=== PATIENT | female | born 1925 | race Caucasian/White ===

== ENCOUNTER 2017-06-12 15:38 | Inpatient (IN) | payer MEDICARE, OTHER ==
[~2017-06-12] VITALS: Ht 154.9 cm; Wt 55.0 kg
[2017-06-12 15:51] VITALS: Ht 154.9 cm; Wt 55.0 kg
--- NOTE | 2017-06-12 18:15 | ERD ---
ER Documentation Chief Complaint Chief Complaint sent by pmd blood in urine since am HPI 89-year-old woman referred here by her PMD for hematuria 1 day. She states she has had bright blood with every bladder movement. She denies history of similar episodes, no back pain, no fevers or chills, no vomiting or diarrhea, no complaints of chest pain or shortness of breath. Patient does use low-dose aspirin daily although denies further anticoagulation, no history of SC or stroke. Patient denies recent antibiotic use, denies dysuria. ROS All systems reviewed and are negative except as per history of present illness. Allergies Allergies: Coded Allergies: No Known Allergy (Unverified , 06/12/17) PMhx/Soc None FmHx Family History: No diabetes Physical Exam Vitals Vital Signs Date Time Temp Pulse Resp B/P Pulse Ox O2 Delivery O2 Flow Rate FiO2 06/12/17 15:51 97.8 78 16 170/78 98 Physical Exam GENERAL: Well-developed, well-nourished, well-hydrated, in no apparent distress , looks nontoxic in appearance HEENT: Moist mucous membranes, pink conjunctiva, no cervical spine tenderness or step-off deformities, no goiter, no jaundice or icterus, extraocular movements intact without pain. No submandibular induration, and no pharyngeal erythema NEURO: Alert and oriented 3, cranial nerves II through XII intact bilaterally, pupils equal round reactive to light, no focal deficits or facial asymmetry, sensation intact distally Strength 5/5 in upper and lower extremities bilaterally CARDIAC: Regular rate and rhythm, no murmurs rubs or gallops LUNGS: Clear bilaterally no wheezing crackles or stridor ABDOMEN: Soft nontender, no guarding, no rigidity, no rebound, no psoas sign no obturator sign. Normoactive bowel sounds SKIN: Warm and dry to touch, no abrasions, contusions, or hematomas, no lacerations, no ecchymosis, no target lesions, and without ulcers EXTREMITIES: No clubbing cyanosis or edema, calves are bilaterally symmetrical, no Homans sign, no popliteal cord sign. Distal pulses equal and bilateral PSYCH: Normal affect without agitation or irritability Result Diagram: 06/12/17182406/12/171824 Results 24 hrs Laboratory Tests Test 06/12/17 18:25 White Blood Count 8.410^3/ul Red Blood Count 4.6710^6/ul Hemoglobin 15.2g/dl Hematocrit 44.2% Mean Corpuscular Volume 94.6fl Mean Corpuscular Hemoglobin 32.5pg Mean Corpuscular Hemoglobin Concent 34.4g/dl Red Cell Distribution Width 13.2% Platelet Count 32502^3/UL Mean Platelet Volume 9.0fl Neutrophils % 63.9% Lymphocytes % 22.4% Monocytes % 11.9% Eosinophils % 0.8% Basophils % 0.6% Nucleated Red Blood Cells % 0.0/100WBC Neutrophils # 5.410^3/ul Lymphocytes # 1.910^3/ul Monocytes # 1.010^3/ul Eosinophils # 0.110^3/ul Basophils # 0.110^3/ul Nucleated Red Blood Cells # 0.010^3/ul Prothrombin Time 12.9Sec Prothrombin Time Ratio 1.0 INR International Normalized Ratio 0.97 Urine Color ARIEL Urine Clarity CLOUDY Urine pH 6.0 Urine Specific [place] 1.013 Urine Ketones NEGATIVEmg/dL Urine Nitrite NEGATIVEmg/dL Urine Bilirubin NEGATIVEmg/dL Urine Urobilinogen NEGATIVEmg/dL Urine Leukocyte Esterase 2+Yeimi/ul Urine Microscopic RBC > 182/HPF Urine Microscopic WBC > 182/HPF Urine Bacteria FEW/HPF Urine Hemoglobin 3+mg/dL Urine Glucose 1+mg/dL Urine Total Protein 2+mg/dl Sodium Level 141mmol/L Potassium Level 3.9mmol/L Chloride Level 102mmol/L Carbon Dioxide Level 29mmol/L Anion Gap 14 Blood Urea Nitrogen 17mg/dl Creatinine 0.82mg/dl Glucose Level 106mg/dl Calcium Level 10.3mg/dl Total Bilirubin 2.0mg/dl Direct Bilirubin 0.00mg/dl Indirect Bilirubin 2.0mg/dl Aspartate Amino Transf (AST/SGOT) 30IU/L Alanine Aminotransferase (ALT/SGPT) 31IU/L Alkaline Phosphatase 88IU/L Troponin I Pending Total Protein 7.5g/dl Albumin 4.4g/dl Globulin 3.10g/dl Albumin/Globulin Ratio 1.41 Lipase 147U/L Current Medications Medications (Trade) Dose Ordered Sig/Naldo Route PRN Reason Start Time Stop Time Status Last Admin Dose Admin Ceftriaxone Sodium 50 ml @ 100 mls/hr ONCE ONCE IVPB 06/12/17 18:30 06/12/17 18:59 DC 06/12/17 18:41 Sodium Chloride (NS) 1,000 ml @ 1,000 mls/hr Q1H ONCE IV 06/12/17 18:30 06/12/17 19:29 DC 06/12/17 18:42 Procedures/MDM IV line was established patient was placed on filterer rhythm strip revealed a sinus rhythm at about 60 bpm with upright P and T waves. Patient was afebrile Urine analysis was positive for RBCs and infection, CBC and electrolytes were unremarkable, liver function tests normal, coagulation profile normal. Troponin was negative. EKG performed, read by me: 62 bpm, normal sinus rhythm, normal axis, no acute ST segment changes, narrow QRS complex, with good R-wave progression in precordial leads. I administered 1 L normal saline intravenously and ceftriaxone 1 g IV for hemorrhagic cystitis. CT scan of the abdomen and pelvis has been ordered results are pending I will follow-up. Patient will be admitted to [facility] [place] under Dr. Glass who I spoke to. Patient will be admitted for further imaging and consultation. Departure Diagnosis: Primary Impression: Hematuria Hematuria type: unspecified type Qualified Code: R31.9 - Hematuria, unspecified type Additional Impression: Acute cystitis Hematuria presence: with hematuria Qualified Code: N30.01 - Acute cystitis with hematuria Condition: GEMA Roth MD Jun 12, 2017 18:15
[2017-06-12] MEDS ORDERED: SOD CHLORIDE 0.9% 1,000 ML IV ONE (18:30)
[2017-06-12] MEDS ORDERED: CEFTRIAXONE 1 GM/50 ML (PMX) 50 ML IVPB ONE (18:30)
[2017-06-12 18:49] LABS: BASOPHIL # 0.1 10^3/ul (0.0-0.1); BASOPHILS % 0.6 % (0.0-2.0); EOSINOPHILS # 0.1 10^3/ul (0.0-0.5); EOSINOPHILS % 0.8 % (0.0-7.0); HEMATOCRIT 44.2 % (37.0-47.0); HEMOGLOBIN 15.2 g/dl (12.0-16.0); LYMPHOCYTES # 1.9 10^3/ul (0.8-2.9); LYMPHOCYTES % 22.4 % (15.0-51.0); MEAN CORPUSCULAR HEMOGLOBIN 32.5 pg (29.0-33.0); MEAN CORPUSCULAR HGB CONC 34.4 g/dl (32.0-37.0); MEAN CORPUSCULAR VOLUME 94.6 fl (82.0-101.0); MONOCYTES % 11.9 % (0.0-11.0); NEUTROPHIL # 5.4 10^3/ul (1.6-7.5); NEUTROPHILS % 63.9 % (39.0-77.0); PLATELET COUNT 325 10^3/UL (140-415); RED BLOOD COUNT 4.67 10^6/ul (4.20-5.40); RED CELL DISTRIBUTION WIDTH 13.2 % (11.5-14.5); WHITE BLOOD COUNT 8.4 10^3/ul (4.8-10.8)
[2017-06-12 18:58] LABS: ADD UMIC YES; UR ASCORBIC ACID NEGATIVE (NEGATIVE); UR BACTERIA FEW /HPF (NONE SEEN); UR BILIRUBIN (Dip) NEGATIVE (NEGATIVE); UR BLOOD (Dip) 3+ mg/dL (NEGATIVE); UR CLARITY CLOUDY (CLEAR); UR COLOR AMBER (YELLOW); UR GLUCOSE (Dip) 1+ mg/dL (NEGATIVE); UR KETONES (Dip) NEGATIVE (NEGATIVE); UR LEUKOCYTE ESTERASE (Dip) 2+ Leu/ul (NEGATIVE); UR NITRITE (Dip) NEGATIVE (NEGATIVE); UR RBC > 182 /HPF (0-5); UR SPECIFIC GRAVITY (Dip) 1.013 (1.003-1.030); UR TOTAL PROTEIN (Dip) 2+ mg/dl (NEGATIVE); UR UROBILINOGEN (Dip) NEGATIVE (NEGATIVE)
[2017-06-12 19:09] LABS: INR 0.97; PROTIME 12.9 Sec (12.2-14.2)
[2017-06-12 19:15] LABS: ALBUMIN 4.4 g/dl (3.3-4.9); ALBUMIN/GLOBULIN RATIO 1.41; CALCIUM 10.3 mg/dl (8.4-10.2); CREATININE 0.82 mg/dl (0.44-1.00); POTASSIUM 3.9 mmol/L (3.5-5.1); TOTAL PROTEIN 7.5 g/dl (6.1-8.1)
[2017-06-12 19:25] LABS: TROPONIN-I 0.013 ng/ml (0.00-0.12)
--- NOTE | 2017-06-12 20:57 | RADRPT ---
PROCEDURE: CT Abdomen and Pelvis without contrast. CLINICAL INDICATION: Abdominal pain TECHNIQUE: CT scan of the abdomen and pelvis without contrast was performed on a multidetector hig h-resolution CT scanner. The patient was scanned without intravenous contrast. Coronal and sagittal reformatted images were obtained from the axial source images. Images were reviewed on a high-resol PR Slides PACS workstation. The total exam CTDI equals 5.87 mGy and the total exam DLP equals 319.34 mGy -cm. One or more the following dose reduction techniques were utilized: Automated exposure control, adjus tment of the mA and / or kV according to patient's size, or use of iterative reconstruction techniqu e. DICOM images are available. COMPARISON: None. FINDINGS: Mild dependent atelectasis in posterior lungs. Linear atelectasis/fibrosis at lung bases. No pneumop eritoneum is seen. There is mild left hydronephrosis and mild to moderate right hydronephrosis. Ther e is an approximate 3 mm nonobstructing calcification in the mid right kidney. No ureteral stone is seen. No abnormality of the bladder is seen. The patient appears to be status post hysterectomy. Ceballos rgical clips in bilateral inguinal regions. No abnormality is seen in the gallbladder. There is an a pproximate 8 mm rounded fluid density structure in right lobe of the liver likely a cyst. No imaging follow-up of this is recommended. No abnormality seen in the spleen, pancreas, adrenals. The stomac h is not distended. There is a small hiatal hernia. Calcification in thoracoabdominal aorta, splenic and bilateral iliac arteries. No abdominal aortic aneurysm is seen. No ascites is seen. Diverticula in sigmoid, descending and ascending colon. There is no specific evidence of acute diverticulitis is seen. There is no evidence of acute appendicitis. No dilated small bowel loops are seen. No enlar ged lymph nodes are seen in the abdomen or pelvis. Diffuse osteopenia. Mild osteitis pubis. Moderate osteoarthrosis at hips. Degenerative changes at sacroiliac joints. Degenerative changes in thoracol umbar spine. Mild dextroscoliosis of lumbar spine. IMPRESSION: Nonspecific mild left hydronephrosis and mild to moderate right hydronephrosis. 3 mm nonobstructing calcification in mid right kidney. Small hiatal hernia. Atherosclerosis. Colonic diverticulosis. No specific evidence of acute diverticulitis seen. Please see above. RPTAT: HJES .Zay Mendoza MD, Date Time Electronically viewed and signed by .Zay Mendoza MD, on 06/12/2017 20:57 .S/
[2017-06-12 22:00] VITALS: BP 153/71; RESP 19
[2017-06-12] MEDS ORDERED: ACETAMINOPHEN 500 MG TAB PO PRN (22:00)
[2017-06-12] MEDS: CEFTRIAXONE 1 GM/50 ML (PMX) 50 ML IVPB SCH (22:00)
[2017-06-12] MEDS: DEXTROSE 5%-0.45% NACL 1,000 ML IV SCH (22:58)
[2017-06-12] MEDS: LORAZEPAM 0.5 MG TAB PO PRN (23:07)
[2017-06-13 02:00] VITALS: BP 126/58; RESP 18
[2017-06-13] MEDS: LEVOTHYROXINE 100 MCG TAB PO SCH (05:44)
[2017-06-13 06:47] LABS: BASOPHILS % 0.6 % (0.0-2.0); EOSINOPHILS # 0.1 10^3/ul (0.0-0.5); HEMATOCRIT 36.8 % (37.0-47.0); HEMOGLOBIN 12.7 g/dl (12.0-16.0); LYMPHOCYTES # 1.9 10^3/ul (0.8-2.9); LYMPHOCYTES % 28.6 % (15.0-51.0); MEAN CORPUSCULAR HEMOGLOBIN 32.4 pg (29.0-33.0); MEAN CORPUSCULAR HGB CONC 34.5 g/dl (32.0-37.0); MEAN CORPUSCULAR VOLUME 93.9 fl (82.0-101.0); MEAN PLATELET VOLUME 9.3 fl (7.4-10.4); MONOCYTE # 0.8 10^3/ul (0.3-0.9); MONOCYTES % 12.8 % (0.0-11.0); NEUTROPHIL # 3.7 10^3/ul (1.6-7.5); NEUTROPHILS % 55.8 % (39.0-77.0); PLATELET COUNT 265 10^3/UL (140-415); RED BLOOD COUNT 3.92 10^6/ul (4.20-5.40); RED CELL DISTRIBUTION WIDTH 13.3 % (11.5-14.5); WHITE BLOOD COUNT 6.6 10^3/ul (4.8-10.8)
[2017-06-13 07:25] LABS: ALBUMIN 3.2 g/dl (3.3-4.9); ALBUMIN/GLOBULIN RATIO 1.23; BILIRUBIN,INDIRECT 2.3 mg/dl (0-1.1); BILIRUBIN,TOTAL 2.3 mg/dl (0.2-1.3); CALCIUM 9.2 mg/dl (8.4-10.2); CREATININE 0.75 mg/dl (0.44-1.00); POTASSIUM 3.9 mmol/L (3.5-5.1); TOTAL PROTEIN 5.8 g/dl (6.1-8.1)
[2017-06-13] MEDS: BENAZEPRIL 20 MG TAB PO SCH (08:25)
[2017-06-13] MEDS: AMLODIPINE 5 MG TAB PO SCH (08:27)
[2017-06-13] MEDS: BISOPROLOL 5 MG TAB PO SCH (08:27)
--- NOTE | 2017-06-13 10:44 | HP ---
DATE OF ADMISSION: 06/12/2017 CHIEF COMPLAINT AND HISTORY OF PRESENT ILLNESS: The patient is an 89-year-old lady who presented wi th severe hematuria since morning of 06/12, which was painless with no fever or chills. No prior hi story of nephrolithiasis. The patient is on low dose aspirin 81 mg every day. No history of trauma to the flanks. She did have a fall about 10 days ago when she was taking the trash out, hit her ri ght side of the face and the right knee, but no definite abdominal trauma. Patient did have surgery for bladder prolapse about 20+ years ago. REVIEW OF SYSTEMS: HEAD: No history of headaches, focal weakness, or numbness. No history of strokes. EYES: No blurry vision or glaucoma. ENT: No sinusitis, tonsillitis, or hearing loss. NECK: History of hypothyroidism. CHEST: No bronchitis, hay fever, or asthma. The patient does not smoke. HEART: No PND, orthopnea, palpitations. No prior history of [place] or angina. GASTROINTESTINAL: No constipation, diarrhea, change in bowel habits. No history of hematemesis or melena. GENITOURINARY: History of bladder prolapse as above, status post hysterectomy in 2005. No history of cancer. FAMILY HISTORY: Mother of cancer. Exact details not clear. One sister had bile duct [place]. Fat her of [place] at 75. SOCIAL HISTORY: The patient is . He has got 4 children. PAST SURGICAL HISTORY: Other surgeries also include tonsillectomy and appendectomy. CURRENT MEDICATIONS: Include: 1. Bisoprolol 5 mg every day. 2. Levothyroxine 100 mcg p.o. every day. 3. Lorazepam 0.5 mg q.6h. p.r.n. 4. Amlodipine 5 mg p.o. every day. 5. Benazepril 12.5 mg p.o. every day. PHYSICAL EXAMINATION: GENERAL: No history of weight loss or weight gain. On physical examination, the patient is an aver age-built female who is awake, alert, presently in no acute distress. VITAL SIGNS: Temperature 97.5, blood pressure 126/58, O2 saturation 96%. HEENT: Head normocephalic. Mild pallor without cyanosis. Tongue is coated, dry. NECK: Supple. No thyromegaly, bruits or lymphadenopathy. LUNGS: Clinically clear. HEART: S1, S2, no definite gallops or murmurs. ABDOMEN: Soft, nontender, no hepatosplenomegaly. EXTREMITIES: No edema. Pedal pulsations 2+ bilaterally. Elena's sign is negative. NEUROLOGIC: No localizing or lateralizing signs. LABORATORY DATA: Initial WBC count 8.4, hematocrit 44.2, platelet count 325,000. Sodium 141, potas sium 3.9, BUN 17, creatinine 0.82, indirect bilirubin 2.0, direct is 0, total is 2, AST 30, ALT 31, alkaline phosphatase 88. Urinalysis shows more than 192 RBCs and WBCs, positive bacteria. CT of th e abdomen and pelvis shows nonspecific mild left hydronephrosis, mild to moderate right hydronephros is, 3 mm nonobstructing calcification in the mid right kidney. CT was done without IV contrast. IMPRESSION: 1. Hematuria of uncertain origin, query hemorrhagic cystitis, query secondary to nephrolithiasis. 2. Bilateral hydronephrosis, etiology unclear. 3. Hypertension, well compensated. 4. 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 We will obtain urine cytology, request genitourinary consultation with Dr. Bruce. Observe for mar. Empiric antibiotic therapy with Rocephin. Hold aspirin for now. Dictated By: NOVA BOBBY MD, SR/NTS Conf#: [id number] DID#: [id number]
[2017-06-13] MEDS: DEXTROSE 5%-0.45% NACL 1,000 ML IV SCH ×2 (11:20→17:52)
[2017-06-13 20:23] VITALS: BP 144/74; RESP 18
--- NOTE | 2017-06-13 21:33 | CONS ---
Date/Time of Note Date/Time of Note DATE: 06/13/17 TIME: 21:20 Assessment/Plan Assessment/Plan Chief Complaint/Hosp Course 89-year-old female had gross hematuria, painless, urine cultures showing more than 100,000 gram-negative rods. CT scan of the abdomen and pelvis without IV contrast did not show any parenchymal tumor. For now we will continue her antibiotic pending the result of the sensitivity of the urine culture. Then we could decide whether to put her on oral antibiotic or intravenous antibiotic. She will need to undergo a cystoscopy and I did discuss that with her and can do it in the office later on. Problems: Consultation Date/Type/Reason Admit Date/Time Jun 12, 2017 at 19:41 Date of Consultation: Jun 13, 2017 Type of Consultation: Urology Reason for Consultation Gross hematuria Referring Provider: NOVA BOBBY MD Hx of Present Illness The patient is an 89-year-old lady who presented with severe hematuria since which was painless with no fever or chills. No prior history of nephrolithiasis. The patient is on low dose aspirin 81 mg every day. No history of trauma to the flanks. She did have a fall about 10 days ago when she was taking the trash out, hit her right side of the face and the right knee , but no definite abdominal trauma. Patient did have abdominal hysterectomy and surgery for bladder prolapse about 20+ years ago. 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 Exact details not clear. One sister had bile duct [place]. Father of [place] at 75.) Social History Alcohol Use: occasionally Smoking Status: Never smoker Other Social History 4 para 4 Exam/Review of Systems Vital Signs Vitals Vital Signs Date Time Temp Pulse Resp B/P Pulse Ox O2 Delivery O2 Flow Rate FiO2 06/13/17 20:23 98.4 58 18 144/74 98 06/12/17 20:19 Room Air Intake and Output 06/12/17 06/12/17 06/13/17 14:59 22:59 06:59 Intake Total 595 ml Output Total 600 ml Balance -5 ml Exam Constitutional: alert, oriented Psych: no complaints Head: normocephalic Eyes: nl conjunctiva ENMT: nl external ears & nose Neck: non-tender Respiratory: normal air movement Cardiovascular: No edema, No jugular venous distention (JVD) Gastrointestinal: soft, surgical scars (Midline ) Genitourinary - Female: other (Pelvic exam: No mass, no discharge and no bleeding) Extremities: No calf tenderness, No edema Neurological: nl mental status Skin: nl turgor Results Result Diagram: 06/13/1710 06/13/1710 Results 24 hrs Laboratory Tests Test 06/13/17 06:10 White Blood Count 6.6 # Red Blood Count 3.92 L Hemoglobin 12.7 Hematocrit 36.8 L Mean Corpuscular Volume 93.9 Mean Corpuscular Hemoglobin 32.4 Mean Corpuscular Hemoglobin Concent 34.5 Red Cell Distribution Width 13.3 Platelet Count 265 Mean Platelet Volume 9.3 Neutrophils % 55.8 Lymphocytes % 28.6 Monocytes % 12.8 H Eosinophils % 2.0 Basophils % 0.6 Nucleated Red Blood Cells % 0.0 Neutrophils # 3.7 Lymphocytes # 1.9 Monocytes # 0.8 Eosinophils # 0.1 Basophils # 0.0 Nucleated Red Blood Cells # 0.0 Sodium Level 143 Potassium Level 3.9 Chloride Level 106 Carbon Dioxide Level 29 Anion Gap 12 Blood Urea Nitrogen 12 Creatinine 0.75 Glucose Level 109 Calcium Level 9.2 Total Bilirubin 2.3 H Direct Bilirubin 0.00 Indirect Bilirubin 2.3 H Aspartate Amino Transf (AST/SGOT) 25 Alanine Aminotransferase (ALT/SGPT) 29 Alkaline Phosphatase 60 Total Protein 5.8 #L Albumin 3.2 #L Globulin 2.60 Albumin/Globulin Ratio 1.23 Thyroxine (T4) 9.4 Imaging Free Text/Dictation CT scan of the abdomen and pelvis without contrast:Nonspecific mild left hydronephrosis and mild to moderate right hydronephrosis. 3 mm nonobstructing calcification in mid right kidney. Small hiatal hernia. Atherosclerosis. Colonic diverticulosis. No specific evidence of acute diverticulitis seen. Medications Medications Current Medications Dextrose/Sodium Chloride 1,000 ml @ 75 mls/hr [id number] IV Last administered on 06/13/17 17:52; Admin Dose 75 MLS/HR; Start 06/12/17 at 22:00 Ceftriaxone Sodium (Rocephin) 50 ml @ 100 mls/hr Q24H IVPB ; Start 06/12/17 at 22:00 Acetaminophen (Tylenol Tab) 500 mg Q6H PRN PO PAIN AND OR ELEVATED TEMP; Start 06/12/17 at 22:00 Amlodipine Besylate (Norvasc) 5 mg DAILY PO Last administered on 06/13/17 08: 27; Admin Dose 5 MG; Start 06/13/17 at 09:00 Bisoprolol Fumarate (Zebeta) 5 mg DAILY PO Last administered on 06/13/17 08: 27; Admin Dose 5 MG; Start 06/13/17 at 09:00 Levothyroxine Sodium (Synthroid) 100 mcg DAILY@06 PO Last administered on 06/13 05:44; Admin Dose 100 MCG; Start 06/13/17 at 06:00 Lorazepam (Ativan) 0.5 mg Q6H PRN PO ANXIETY Last administered on 06/12/17 23 :07; Admin Dose 0.5 MG; Start 06/12/17 at 22:00 Benazepril HCl (Lotensin) 12.5 mg DAILY PO Last administered on 06/13/17 08: 25; Admin Dose 12.5 MG; Start 06/13/17 at 09:00 GABBY ARMSTRONG MD Jun 13, 2017 21:31
[2017-06-13] MEDS: CEFTRIAXONE 1 GM/50 ML (PMX) 50 ML IVPB SCH (22:34)
[2017-06-13] MEDS: LORAZEPAM 0.5 MG TAB PO PRN (22:40)
[2017-06-14 02:14] VITALS: BP 107/60; RESP 17
[2017-06-14] MEDS: LEVOTHYROXINE 100 MCG TAB PO SCH (06:03)
[2017-06-14 08:24] VITALS: BP 129/58; RESP 18
[2017-06-14] MEDS: BENAZEPRIL 20 MG TAB PO SCH (09:00)
[2017-06-14] MEDS: AMLODIPINE 5 MG TAB PO SCH (09:01)
[2017-06-14] MEDS: BISOPROLOL 5 MG TAB PO SCH (09:02)
[2017-06-14] MEDS: DEXTROSE 5%-0.45% NACL 1,000 ML IV SCH ×3 (09:57→22:20)
[2017-06-14 15:28] VITALS: BP 145/65; RESP 20
--- NOTE | 2017-06-14 19:51 | PN ---
Date/Time of Note Date/Time of Note DATE: 06/14/17 TIME: 19:44 Assessment/Plan VTE Prophylaxis VTE Prophylaxis Intervention: ambulation Lines/Catheters IV Catheter Type (from Nrs): Peripheral IV Urinary Cath still in place: No Assessment/Plan Assessment/Plan A: hematuria hydronephrosis UTI HTN P: discussed with Dr. Bruce cont inpt care cont abx may need cystoscopy during hospitalization, needs few more days abx first cont current rx monitor labs Subjective 24 Hr Interval Summary Free Text/Dictation Covering for Dr. Glass. Pt with persistent hematuria, still significant amount despite abx. No pain, cp, sob, abd pain, dizziness. Exam/Review of Systems Vital Signs Vitals Vital Signs Date Time Temp Pulse Resp B/P Pulse Ox O2 Delivery O2 Flow Rate FiO2 06/14/17 15:28 98.0 64 20 145/65 98 06/12/17 20:19 Room Air Intake and Output 06/13/17 06/13/17 06/14/17 15:00 23:00 07:00 Intake Total 0 ml 1405 ml 1225 ml Output Total 700 ml 1000 ml Balance 0 ml 705 ml 225 ml Exam gen- nad, nontoxic lungs- cta heart- RRR abd- +BS, soft, nontender ext- no cce. Results Result Diagram: 06/13/17 0610 06/13/17 0610 Medications Medications Current Medications Dextrose/Sodium Chloride 1,000 ml @ 75 mls/hr [id number] IV Last administered on 06/14/17 09:57; Admin Dose 75 MLS/HR; Start 06/12/17 at 22:00 Ceftriaxone Sodium (Rocephin) 50 ml @ 100 mls/hr Q24H IVPB Last administered on 06/13/17 22:34; Admin Dose 100 MLS/HR; Start 06/12/17 at 22:00 Acetaminophen (Tylenol Tab) 500 mg Q6H PRN PO PAIN AND OR ELEVATED TEMP; Start 06/12/17 at 22:00 Amlodipine Besylate (Norvasc) 5 mg DAILY PO Last administered on 06/14/17 09: 01; Admin Dose 5 MG; Start 06/13/17 at 09:00 Bisoprolol Fumarate (Zebeta) 5 mg DAILY PO Last administered on 11/22/17at 09: 02; Admin Dose 5 MG; Start 06/13/17 at 09:00 Levothyroxine Sodium (Synthroid) 100 mcg DAILY@06 PO Last administered on 06/14 06:03; Admin Dose 100 MCG; Start 06/13/17 at 06:00 Lorazepam (Ativan) 0.5 mg Q6H PRN PO ANXIETY Last administered on 06/13/17 22 :40; Admin Dose 0.5 MG; Start 06/12/17 at 22:00 Benazepril HCl (Lotensin) 12.5 mg DAILY PO Last administered on 06/14/17 09: 00; Admin Dose 12.5 MG; Start 06/13/17 at 09:00 RESHMA JONES MD Jun 14, 2017 19:51
--- NOTE | 2017-06-14 20:27 | CONS ---
Date/Time of Note Date/Time of Note DATE: 06/14/17 TIME: 20:24 Consult Date/Type/Reason Admit Date/Time Jun 12, 2017 at 19:41 Initial Consult Date 06/13/17 Type of Consultation: Urology Reason for Consultation Gross hematuria and urinary tract infection Ordering Provider: NOVA BOBBY MD Subjective The patient is feeling well however she still urinating blood Objective Vital Signs Date Time Temp Pulse Resp B/P Pulse Ox O2 Delivery O2 Flow Rate FiO2 06/14/17 15:28 98.0 64 20 145/65 98 06/12/17 20:19 Room Air Intake and Output 06/13/17 06/13/17 06/14/17 15:00 23:00 07:00 Intake Total 0 ml 1405 ml 1225 ml Output Total 700 ml 1000 ml Balance 0 ml 705 ml 225 ml Exam Abdomen is soft there is no abdominal mass palpable the urine that she is voiding in the bathroom still red blood Results/Medications Result Diagram: 06/13/17 0610 06/13/17 0610 Medications Current Medications Dextrose/Sodium Chloride 1,000 ml @ 75 mls/hr [id number] IV Last administered on 06/14/17 09:57; Admin Dose 75 MLS/HR; Start 06/12/17 at 22:00 Ceftriaxone Sodium (Rocephin) 50 ml @ 100 mls/hr Q24H IVPB Last administered on 06/13/17 22:34; Admin Dose 100 MLS/HR; Start 06/12/17 at 22:00 Acetaminophen (Tylenol Tab) 500 mg Q6H PRN PO PAIN AND OR ELEVATED TEMP; Start 06/12/17 at 22:00 Amlodipine Besylate (Norvasc) 5 mg DAILY PO Last administered on 06/14/17 09: 01; Admin Dose 5 MG; Start 06/13/17 at 09:00 Bisoprolol Fumarate (Zebeta) 5 mg DAILY PO Last administered on 06/14/17 09: 02; Admin Dose 5 MG; Start 06/13/17 at 09:00 Levothyroxine Sodium (Synthroid) 100 mcg DAILY@06 PO Last administered on 06/14 06:03; Admin Dose 100 MCG; Start 06/13/17 at 06:00 Lorazepam (Ativan) 0.5 mg Q6H PRN PO ANXIETY Last administered on 06/13/17 22 :40; Admin Dose 0.5 MG; Start 06/12/17 at 22:00 Benazepril HCl (Lotensin) 12.5 mg DAILY PO Last administered on 06/14/17 09: 00; Admin Dose 12.5 MG; Start 06/13/17 at 09:00 Assessment/Plan Chief Complaint/Hosp Course 89-year-old female had gross hematuria, painless, urine cultures showing more than 100,000 gram-negative rods sensitive to all antibiotics tested. CT scan of the abdomen and pelvis without IV contrast did not show any parenchymal tumor. For now we will continue her antibiotic. She will need to undergo a cystoscopy since he still has gross hematuria even though the infection is being treated Problems: GABBY ARMSTRONG MD Jun 14, 2017 20:27
[2017-06-14 20:49] VITALS: BP 140/64; RESP 19
[2017-06-14] MEDS: LORAZEPAM 0.5 MG TAB PO PRN (22:10)
[2017-06-14] MEDS: CEFTRIAXONE 1 GM/50 ML (PMX) 50 ML IVPB SCH (22:10)
[2017-06-15 02:14] VITALS: BP 133/62; RESP 18
[2017-06-15] MEDS: DEXTROSE 5%-0.45% NACL 1,000 ML IV SCH ×3 (03:17→21:11)
[2017-06-15 05:46] LABS: BASOPHILS % 0.4 % (0.0-2.0); EOSINOPHILS # 0.1 10^3/ul (0.0-0.5); EOSINOPHILS % 0.9 % (0.0-7.0); HEMATOCRIT 36.2 % (37.0-47.0); HEMOGLOBIN 12.6 g/dl (12.0-16.0); LYMPHOCYTES # 2.2 10^3/ul (0.8-2.9); LYMPHOCYTES % 27.8 % (15.0-51.0); MEAN CORPUSCULAR HEMOGLOBIN 32.5 pg (29.0-33.0); MEAN CORPUSCULAR HGB CONC 34.8 g/dl (32.0-37.0); MEAN CORPUSCULAR VOLUME 93.3 fl (82.0-101.0); MEAN PLATELET VOLUME 9.1 fl (7.4-10.4); MONOCYTE # 1.3 10^3/ul (0.3-0.9); MONOCYTES % 16.1 % (0.0-11.0); NEUTROPHIL # 4.4 10^3/ul (1.6-7.5); NEUTROPHILS % 54.5 % (39.0-77.0); PLATELET COUNT 239 10^3/UL (140-415); RED BLOOD COUNT 3.88 10^6/ul (4.20-5.40); RED CELL DISTRIBUTION WIDTH 13.5 % (11.5-14.5)
[2017-06-15 06:08] LABS: CALCIUM 8.5 mg/dl (8.4-10.2); CREATININE 0.66 mg/dl (0.44-1.00)
[2017-06-15 07:57] VITALS: BP 141/92; RESP 20
[2017-06-15] MEDS: BENAZEPRIL 20 MG TAB PO SCH (08:10)
[2017-06-15] MEDS: BISOPROLOL 5 MG TAB PO SCH (08:11)
[2017-06-15] MEDS: AMLODIPINE 5 MG TAB PO SCH (08:11)
[2017-06-15] MEDS ORDERED: POTASSIUM CHLORIDE (SR) 20 MEQ TAB PO STA (09:39)
[2017-06-15] MEDS: LEVOTHYROXINE 100 MCG TAB PO SCH (09:49)
[2017-06-15 14:29] VITALS: BP 132/60; RESP 20
--- NOTE | 2017-06-15 14:31 | PN ---
Date/Time of Note Date/Time of Note DATE: 06/15/17 TIME: 14:27 Assessment/Plan VTE Prophylaxis VTE Prophylaxis Intervention: ambulation Lines/Catheters IV Catheter Type (from [facility]): Peripheral IV Urinary Cath still in place: No Assessment/Plan Assessment/Plan A: hematuria hypokalemia UTI hydronephrosis P: k replaced monitor labs cont abx cystoscopy soon per Dr. Bruce Subjective 24 Hr Interval Summary Free Text/Dictation Pt with persistent hematuria, though sl better. No dysuria, back pain, abd pain , cp, sob, dizziness. Hypokalemia this am, given oral replacement. Exam/Review of Systems Vital Signs Vitals Vital Signs Date Time Temp Pulse Resp B/P Pulse Ox O2 Delivery O2 Flow Rate FiO2 06/15/17 07:57 98.0 72 20 141/92 97 06/12/17 20:19 Room Air Intake and Output 06/14/17 06/14/17 06/15/17 15:00 23:00 07:00 Intake Total 175 ml 1550 ml 765 ml Output Total 1050 ml 400 ml Balance 175 ml 500 ml 365 ml Exam gen- nad, nontoxic lungs- CTA heart- RRR abd- +BS. soft, nontender, no cvat ext- no cce. Results Result Diagram: 06/15/17 0532 06/15/17 0532 Results 24 hrs Laboratory Tests Test 06/15/17 05:32 White Blood Count 8.0 # Red Blood Count 3.88 L Hemoglobin 12.6 Hematocrit 36.2 L Mean Corpuscular Volume 93.3 Mean Corpuscular Hemoglobin 32.5 Mean Corpuscular Hemoglobin Concent 34.8 Red Cell Distribution Width 13.5 Platelet Count 239 Mean Platelet Volume 9.1 Neutrophils % 54.5 Lymphocytes % 27.8 Monocytes % 16.1 H Eosinophils % 0.9 Basophils % 0.4 Nucleated Red Blood Cells % 0.0 Neutrophils # 4.4 Lymphocytes # 2.2 Monocytes # 1.3 H Eosinophils # 0.1 Basophils # 0.0 Nucleated Red Blood Cells # 0.0 Sodium Level 140 Potassium Level 3.0 L Chloride Level 104 Carbon Dioxide Level 27 Anion Gap 12 Blood Urea Nitrogen 9 Creatinine 0.66 Glucose Level 102 Calcium Level 8.5 Medications Medications Current Medications Dextrose/Sodium Chloride 1,000 ml @ 75 mls/hr [id number] IV Last administered on 06/14/17 22:20; Admin Dose 75 MLS/HR; Start 06/12/17 at 22:00 Ceftriaxone Sodium (Rocephin) 50 ml @ 100 mls/hr Q24H IVPB Last administered on 06/14/17 22:10; Admin Dose 100 MLS/HR; Start 06/12/17 at 22:00 Acetaminophen (Tylenol Tab) 500 mg Q6H PRN PO PAIN AND OR ELEVATED TEMP; Start 06/12/17 at 22:00 Amlodipine Besylate (Norvasc) 5 mg DAILY PO Last administered on 06/15/17 08: 11; Admin Dose 5 MG; Start 06/13/17 at 09:00 Bisoprolol Fumarate (Zebeta) 5 mg DAILY PO Last administered on 06/15/17 08: 11; Admin Dose 5 MG; Start 06/13/17 at 09:00 Levothyroxine Sodium (Synthroid) 100 mcg DAILY@06 PO Last administered on 06/15 09:49; Admin Dose 100 MCG; Start 06/13/17 at 06:00 Lorazepam (Ativan) 0.5 mg Q6H PRN PO ANXIETY Last administered on 06/14/17 22 :10; Admin Dose 0.5 MG; Start 06/12/17 at 22:00 Benazepril HCl (Lotensin) 12.5 mg DAILY PO Last administered on 06/15/17 08: 10; Admin Dose 12.5 MG; Start 06/13/17 at 09:00 RESHMA JONES MD Jun 15, 2017 14:31
[2017-06-15 20:00] VITALS: BP 145/68; RESP 20
[2017-06-15] MEDS: CEFTRIAXONE 1 GM/50 ML (PMX) 50 ML IVPB SCH (21:11)
[2017-06-15] MEDS: LORAZEPAM 0.5 MG TAB PO PRN (21:11)
[2017-06-16 02:00] VITALS: BP 140/64; RESP 18
[2017-06-16] MEDS: LEVOTHYROXINE 100 MCG TAB PO SCH (05:28)
[2017-06-16 05:52] LABS: BASOPHILS % 0.4 % (0.0-2.0); EOSINOPHILS # 0.2 10^3/ul (0.0-0.5); EOSINOPHILS % 2.9 % (0.0-7.0); HEMATOCRIT 37.1 % (37.0-47.0); HEMOGLOBIN 12.7 g/dl (12.0-16.0); LYMPHOCYTES # 1.8 10^3/ul (0.8-2.9); LYMPHOCYTES % 26.2 % (15.0-51.0); MEAN CORPUSCULAR HEMOGLOBIN 32.2 pg (29.0-33.0); MEAN CORPUSCULAR HGB CONC 34.2 g/dl (32.0-37.0); MEAN CORPUSCULAR VOLUME 94.2 fl (82.0-101.0); MONOCYTES % 13.9 % (0.0-11.0); NEUTROPHIL # 3.9 10^3/ul (1.6-7.5); NEUTROPHILS % 56.2 % (39.0-77.0); PLATELET COUNT 242 10^3/UL (140-415); RED BLOOD COUNT 3.94 10^6/ul (4.20-5.40); RED CELL DISTRIBUTION WIDTH 13.2 % (11.5-14.5); WHITE BLOOD COUNT 6.9 10^3/ul (4.8-10.8)
[2017-06-16 06:12] LABS: CALCIUM 8.9 mg/dl (8.4-10.2); CREATININE 0.7 mg/dl (0.44-1.00); MAGNESIUM 1.8 mg/dl (1.7-2.5); POTASSIUM 3.6 mmol/L (3.5-5.1)
[2017-06-16 08:20] VITALS: BP 146/65; RESP 17
[2017-06-16] MEDS: BISOPROLOL 5 MG TAB PO SCH (08:28)
[2017-06-16] MEDS: BENAZEPRIL 20 MG TAB PO SCH (08:31)
[2017-06-16] MEDS: AMLODIPINE 5 MG TAB PO SCH (08:32)
[2017-06-16] MEDS: DEXTROSE 5%-0.45% NACL 1,000 ML IV SCH ×2 (10:39→23:45)
--- NOTE | 2017-06-16 11:53 | CONS ---
Date/Time of Note Date/Time of Note DATE: 06/16/17 TIME: 11:51 Consult Date/Type/Reason Admit Date/Time Jun 15, 2017 at 09:41 Initial Consult Date 06/13/17 Type of Consultation: Urology Reason for Consultation Gross hematuria and urinary tract infection Ordering Provider: NOVA BOBBY MD Subjective Patient states that she still have hematuria even though it is less than before but the urine remains blood-tinged even though she has been on antibiotic since her admission. Objective Vital Signs Date Time Temp Pulse Resp B/P Pulse Ox O2 Delivery O2 Flow Rate FiO2 06/16/17 08:20 98.2 69 17 146/65 98 06/12/17 20:19 Room Air Intake and Output 06/15/17 06/15/17 06/16/17 14:59 22:59 06:59 Intake Total 1485 ml 1100 ml Output Total 800 ml 800 ml Balance 685 ml 300 ml Exam The abdomen is soft, there is no abdominal mass palpable and there is no flank tenderness. Results/Medications Result Diagram: 06/16/17 0453 06/16/17 0453 Results 24 hrs Laboratory Tests Test 06/16/17 04:53 White Blood Count 6.9 Red Blood Count 3.94 L Hemoglobin 12.7 Hematocrit 37.1 Mean Corpuscular Volume 94.2 Mean Corpuscular Hemoglobin 32.2 Mean Corpuscular Hemoglobin Concent 34.2 Red Cell Distribution Width 13.2 Platelet Count 242 Mean Platelet Volume 9.0 Neutrophils % 56.2 Lymphocytes % 26.2 Monocytes % 13.9 H Eosinophils % 2.9 Basophils % 0.4 Nucleated Red Blood Cells % 0.0 Neutrophils # 3.9 Lymphocytes # 1.8 Monocytes # 1.0 H Eosinophils # 0.2 Basophils # 0.0 Nucleated Red Blood Cells # 0.0 Sodium Level 140 Potassium Level 3.6 Chloride Level 107 Carbon Dioxide Level 26 Anion Gap 11 Blood Urea Nitrogen 13 Creatinine 0.70 Glucose Level 99 Calcium Level 8.9 Magnesium Level 1.8 Medications Current Medications Dextrose/Sodium Chloride 1,000 ml @ 75 mls/hr [id number] IV Last administered on 06/16/17t 10:39; Admin Dose 75 MLS/HR; Start 06/12/17 at 22:00 Ceftriaxone Sodium (Rocephin) 50 ml @ 100 mls/hr Q24H IVPB Last administered on 06/15/17 21:11; Admin Dose 100 MLS/HR; Start 06/12/17 at 22:00 Acetaminophen (Tylenol Tab) 500 mg Q6H PRN PO PAIN AND OR ELEVATED TEMP; Start 06/12/17 at 22:00 Amlodipine Besylate (Norvasc) 5 mg DAILY PO Last administered on 06/16/17 08: 32; Admin Dose 5 MG; Start 06/13/17 at 09:00 Bisoprolol Fumarate (Zebeta) 5 mg DAILY PO Last administered on 06/16/17 08: 28; Admin Dose 5 MG; Start 06/13/17 at 09:00 Levothyroxine Sodium (Synthroid) 100 mcg DAILY@06 PO Last administered on 06/16 05:28; Admin Dose 100 MCG; Start 06/13/17 at 06:00 Lorazepam (Ativan) 0.5 mg Q6H PRN PO ANXIETY Last administered on 06/15/17 21 :11; Admin Dose 0.5 MG; Start 06/12/17 at 22:00 Benazepril HCl (Lotensin) 12.5 mg DAILY PO Last administered on 06/16/17 08: 31; Admin Dose 12.5 MG; Start 06/13/17 at 09:00 Assessment/Plan Chief Complaint/Hosp Course 89-year-old female had gross painless hematuria, urine cultures showing more than 100,000 gram-negative rods sensitive to all antibiotics tested. CT scan of the abdomen and pelvis without IV contrast did not show any parenchymal tumor. For now we will continue her antibiotic. I will schedule her for a cystoscopy since he still has gross hematuria even though the infection is being treated Problems: GABBY ARMSTRONG MD Jun 16, 2017 11:53
[2017-06-16 14:00] VITALS: BP 130/70; RESP 18
--- NOTE | 2017-06-16 15:53 | PN ---
Date/Time of Note Date/Time of Note DATE: 06/16/17 TIME: 15:50 Assessment/Plan VTE Prophylaxis VTE Prophylaxis Intervention: ambulation Lines/Catheters IV C[facility]ter Type (from [facility]): Peripheral IV Urinary Cath still in place: No Assessment/Plan Assessment/Plan A: hematuria UTI hypokalemia hydronephrosis P: cont current rx cont abx cystoscopy per urology monitor labs Subjective 24 Hr Interval Summary Free Text/Dictation Pt with persistent hematuria but improving. No dysuria, back pain, abd pain, cp , sob. Exam/Review of Systems Vital Signs Vitals Vital Signs Date Time Temp Pulse Resp B/P Pulse Ox O2 Delivery O2 Flow Rate FiO2 06/16/17 08:20 98.2 69 17 146/65 98 06/12/17 20:19 Room Air Intake and Output 06/15/17 06/15/17 06/16/17 15:00 23:00 07:00 Intake Total 1485 ml 1100 ml Output Total 800 ml 800 ml Balance 685 ml 300 ml Exam gen- nad, nontoxic lungs- cta heart- RRR abd- +BS, soft, nontender, no cvat ext- no cce. Results Result Diagram: 06/16/17 0453 06/16/17 0453 Results 24 hrs Laboratory Tests Test 06/16/17 04:53 White Blood Count 6.9 Red Blood Count 3.94 L Hemoglobin 12.7 Hematocrit 37.1 Mean Corpuscular Volume 94.2 Mean Corpuscular Hemoglobin 32.2 Mean Corpuscular Hemoglobin Concent 34.2 Red Cell Distribution Width 13.2 Platelet Count 242 Mean Platelet Volume 9.0 Neutrophils % 56.2 Lymphocytes % 26.2 Monocytes % 13.9 H Eosinophils % 2.9 Basophils % 0.4 Nucleated Red Blood Cells % 0.0 Neutrophils # 3.9 Lymphocytes # 1.8 Monocytes # 1.0 H Eosinophils # 0.2 Basophils # 0.0 Nucleated Red Blood Cells # 0.0 Sodium Level 140 Potassium Level 3.6 Chloride Level 107 Carbon Dioxide Level 26 Anion Gap 11 Blood Urea Nitrogen 13 Creatinine 0.70 Glucose Level 99 Calcium Level 8.9 Magnesium Level 1.8 Medications Medications Current Medications Dextrose/Sodium Chloride 1,000 ml @ 75 mls/hr [id number] IV Last administered on 06/16/17t 10:39; Admin Dose 75 MLS/HR; Start 06/12/17 at 22:00 Ceftriaxone Sodium (Rocephin) 50 ml @ 100 mls/hr Q24H IVPB Last administered on 06/15/17 21:11; Admin Dose 100 MLS/HR; Start 06/12/17 at 22:00 Acetaminophen (Tylenol Tab) 500 mg Q6H PRN PO PAIN AND OR ELEVATED TEMP; Start 06/12/17 at 22:00 Amlodipine Besylate (Norvasc) 5 mg DAILY PO Last administered on 06/16/17 08: 32; Admin Dose 5 MG; Start 06/13/17 at 09:00 Bisoprolol Fumarate (Zebeta) 5 mg DAILY PO Last administered on 06/16/17 08: 28; Admin Dose 5 MG; Start 06/13/17 at 09:00 Levothyroxine Sodium (Synthroid) 100 mcg DAILY@06 PO Last administered on 06/16 05:28; Admin Dose 100 MCG; Start 06/13/17 at 06:00 Lorazepam (Ativan) 0.5 mg Q6H PRN PO ANXIETY Last administered on 06/15/17 21 :11; Admin Dose 0.5 MG; Start 06/12/17 at 22:00 Benazepril HCl (Lotensin) 12.5 mg DAILY PO Last administered on 06/16/17 08: 31; Admin Dose 12.5 MG; Start 06/13/17 at 09:00 RESHMA JONES MD Jun 16, 2017 15:53
[2017-06-16 20:00] VITALS: BP 165/72; RESP 20
[2017-06-16] MEDS: LORAZEPAM 0.5 MG TAB PO PRN (20:30)
[2017-06-16 21:00] VITALS: BP 150/69
[2017-06-16] MEDS: CEFTRIAXONE 1 GM/50 ML (PMX) 50 ML IVPB SCH (21:38)
[2017-06-17 02:00] VITALS: BP 127/60; RESP 20
[2017-06-17] MEDS: LEVOTHYROXINE 100 MCG TAB PO SCH (05:48)
[2017-06-17 06:14] LABS: CALCIUM 8.6 mg/dl (8.4-10.2); CREATININE 0.7 mg/dl (0.44-1.00); POTASSIUM 3.7 mmol/L (3.5-5.1)
[2017-06-17 08:03] VITALS: BP 144/64; RESP 16
[2017-06-17] MEDS: AMLODIPINE 5 MG TAB PO SCH (08:43)
[2017-06-17] MEDS: BENAZEPRIL 20 MG TAB PO SCH (08:43)
[2017-06-17] MEDS: BISOPROLOL 5 MG TAB PO SCH (08:44)
[2017-06-17 14:00] VITALS: BP 140/67; RESP 18
--- NOTE | 2017-06-17 14:33 | PN ---
Date/Time of Note Date/Time of Note DATE: 06/17/17 TIME: 14:30 Assessment/Plan VTE Prophylaxis VTE Prophylaxis Intervention: ambulation Lines/Catheters IV Catheter Type (from [facility]): Peripheral IV Urinary Cath still in place: No Assessment/Plan Assessment/Plan A: hematuria UTI HTN hypokalemia resolved hydronephrosis P: cystoscopy per Dr. Janis douglass current rx Subjective 24 Hr Interval Summary Free Text/Dictation Pt with persistent hematuria, but continues to improve. Most of blood at beginning of stream. No dysuria, abd pain, cp, sob. Exam/Review of Systems Vital Signs Vitals Vital Signs Date Time Temp Pulse Resp B/P Pulse Ox O2 Delivery O2 Flow Rate FiO2 06/17/17 08:03 97.7 63 16 144/64 97 Intake and Output 06/16/17 06/16/17 06/17/17 15:00 23:00 07:00 Intake Total 400 ml 2000 ml 1200 ml Output Total 500 ml 1100 ml Balance 400 ml 1500 ml 100 ml Exam gen- nad, nontoxic lungs- cta heart- RRR abd- +BS, soft, nontender, no cvat ext- no cce. Results Result Diagram: 06/16/17 0453 06/17/17 0504 Results 24 hrs Laboratory Tests Test 06/17/17 05:04 Sodium Level 140 Potassium Level 3.7 Chloride Level 104 Carbon Dioxide Level 27 Anion Gap 13 Blood Urea Nitrogen 10 Creatinine 0.70 Glucose Level 96 Calcium Level 8.6 Medications Medications Current Medications Dextrose/Sodium Chloride 1,000 ml @ 75 mls/hr [id number] IV Last administered on 06/16/17 23:45; Admin Dose 75 MLS/HR; Start 06/12/17 at 22:00 Ceftriaxone Sodium (Rocephin) 50 ml @ 100 mls/hr Q24H IVPB Last administered on 06/16/17 21:38; Admin Dose 100 MLS/HR; Start 06/12/17 at 22:00 Acetaminophen (Tylenol Tab) 500 mg Q6H PRN PO PAIN AND OR ELEVATED TEMP; Start 06/12/17 at 22:00 Amlodipine Besylate (Norvasc) 5 mg DAILY PO Last administered on 06/17/17 08: 43; Admin Dose 5 MG; Start 06/13/17 at 09:00 Bisoprolol Fumarate (Zebeta) 5 mg DAILY PO Last administered on 06/17/17 08: 44; Admin Dose 5 MG; Start 06/13/17 at 09:00 Levothyroxine Sodium (Synthroid) 100 mcg DAILY@06 PO Last administered on 06/17 05:48; Admin Dose 100 MCG; Start 06/13/17 at 06:00 Lorazepam (Ativan) 0.5 mg Q6H PRN PO ANXIETY Last administered on 06/16/17 20 :30; Admin Dose 0.5 MG; Start 06/12/17 at 22:00 Benazepril HCl (Lotensin) 12.5 mg DAILY PO Last administered on 06/17/17 08: 43; Admin Dose 12.5 MG; Start 06/13/17 at 09:00 RESHMA JONES MD Jun 17, 2017 14:33
[2017-06-17] MEDS: DEXTROSE 5%-0.45% NACL 1,000 ML IV SCH ×2 (17:12→21:21)
[2017-06-17] MEDS ORDERED: DOCUSATE SODIUM 100 MG CAP PO PRN (18:00)
--- NOTE | 2017-06-17 19:58 | CONS ---
Date/Time of Note Date/Time of Note DATE: 06/17/17 TIME: 19:55 Consult Date/Type/Reason Admit Date/Time Jun 15, 2017 at 09:41 Initial Consult Date 06/13/17 Type of Consultation: Urology Reason for Consultation Gross painless hematuria Ordering Provider: NOVA BOBBY MD Subjective Patient states that she feels better the urine is not as bloody as before but still blood-tinged. Patient denies having any pain with urination Objective Vital Signs Date Time Temp Pulse Resp B/P Pulse Ox O2 Delivery O2 Flow Rate FiO2 06/17/17 14:00 98.0 68 18 140/67 98 Intake and Output 06/16/17 06/16/17 06/17/17 15:00 23:00 07:00 Intake Total 400 ml 2000 ml 1200 ml Output Total 500 ml 1100 ml Balance 400 ml 1500 ml 100 ml Exam Afebrile, awake and alert, denies any abdominal or flank tenderness Results/Medications Result Diagram: 06/16/17 0453 06/17/17 0504 Results 24 hrs Laboratory Tests Test 06/17/17 05:04 Sodium Level 140 Potassium Level 3.7 Chloride Level 104 Carbon Dioxide Level 27 Anion Gap 13 Blood Urea Nitrogen 10 Creatinine 0.70 Glucose Level 96 Calcium Level 8.6 Medications Current Medications Dextrose/Sodium Chloride 1,000 ml @ 75 mls/hr [id number] IV Last administered on 06/17/17 17:12; Admin Dose 75 MLS/HR; Start 06/12/17 at 22:00 Ceftriaxone Sodium (Rocephin) 50 ml @ 100 mls/hr Q24H IVPB Last administered on 06/16/17 21:38; Admin Dose 100 MLS/HR; Start 06/12/17 at 22:00 Acetaminophen (Tylenol Tab) 500 mg Q6H PRN PO PAIN AND OR ELEVATED TEMP; Start 06/12/17 at 22:00 Amlodipine Besylate (Norvasc) 5 mg DAILY PO Last administered on 06/17/17 08: 43; Admin Dose 5 MG; Start 06/13/17 at 09:00 Bisoprolol Fumarate (Zebeta) 5 mg DAILY PO Last administered on 06/17/17 08: 44; Admin Dose 5 MG; Start 06/13/17 at 09:00 Levothyroxine Sodium (Synthroid) 100 mcg DAILY@06 PO Last administered on 06/17 05:48; Admin Dose 100 MCG; Start 06/13/17 at 06:00 Lorazepam (Ativan) 0.5 mg Q6H PRN PO ANXIETY Last administered on 06/16/17 20 :30; Admin Dose 0.5 MG; Start 06/12/17 at 22:00 Benazepril HCl (Lotensin) 12.5 mg DAILY PO Last administered on 06/17/17 08: 43; Admin Dose 12.5 MG; Start 06/13/17 at 09:00 Docusate Sodium (Colace) 100 mg Q12H PRN PO CONSTIPATION; Start 06/17/17 at 18 :00 Assessment/Plan Chief Complaint/Hosp Course 89-year-old female had gross painless hematuria, urine cultures showing more than 100,000 gram-negative rods sensitive to all antibiotics tested. CT scan of the abdomen and pelvis without IV contrast did not show any parenchymal tumor. For now we will continue her antibiotic. I scheduled her for a cystoscopy and retrograde pyelograms and possible TUR bladder tumor and or biopsy for Monday either at 12:30 PM or 5:30 PM. Problems: GABBY ARMSTRONG MD Jun 17, 2017 19:58
[2017-06-17 20:00] VITALS: BP 140/67; RESP 20
[2017-06-17] MEDS: LORAZEPAM 0.5 MG TAB PO PRN (20:49)
[2017-06-17] MEDS: CEFTRIAXONE 1 GM/50 ML (PMX) 50 ML IVPB SCH (21:00)
[2017-06-18 02:00] VITALS: BP 129/62; RESP 20
[2017-06-18] MEDS: LEVOTHYROXINE 100 MCG TAB PO SCH (06:10)
[2017-06-18] MEDS: DEXTROSE 5%-0.45% NACL 1,000 ML IV SCH (06:15)
[2017-06-18 08:07] VITALS: BP 142/65; RESP 18
[2017-06-18] MEDS: BISOPROLOL 5 MG TAB PO SCH (09:04)
[2017-06-18] MEDS: AMLODIPINE 5 MG TAB PO SCH (09:04)
[2017-06-18] MEDS: BENAZEPRIL 20 MG TAB PO SCH (09:04)
--- NOTE | 2017-06-18 13:41 | PN ---
Date/Time of Note Date/Time of Note DATE: 06/18/17 TIME: 13:38 Assessment/Plan VTE Prophylaxis VTE Prophylaxis Intervention: ambulation Lines/Catheters IV Catheter Type (from Nrs): Peripheral IV Urinary Cath still in place: No Assessment/Plan Assessment/Plan A: hematuria UTI constipation P: cytoscopy tomorrow cont current rx Subjective 24 Hr Interval Summary Free Text/Dictation Pt with some constipation, improved after colace. BM this am. No abd pain. Still some hematuria but continues to improve. No dysuria, back pain, cp, sob. Plan for cystoscopy tomorrow. Exam/Review of Systems Vital Signs Vitals Vital Signs Date Time Temp Pulse Resp B/P Pulse Ox O2 Delivery O2 Flow Rate FiO2 06/18/17 08:07 98.4 74 18 142/65 97 Intake and Output 06/17/17 06/17/17 06/18/17 15:00 23:00 07:00 Intake Total 1930 ml 1000 ml Output Total 1200 ml Balance 730 ml 1000 ml Exam gen- nad, nontoxic lungs- CTA heart- RRR abd- +BS. soft, nontender ext- no edema Results Result Diagram: 06/16/17 0453 06/17/17 0504 Medications Medications Current Medications Dextrose/Sodium Chloride 1,000 ml @ 75 mls/hr [id number] IV Last administered on 06/18/17 06:15; Admin Dose 75 MLS/HR; Start 06/12/17 at 22:00 Ceftriaxone Sodium (Rocephin) 50 ml @ 100 mls/hr Q24H IVPB Last administered on 06/17/17 21:00; Admin Dose 100 MLS/HR; Start 06/12/17 at 22:00 Acetaminophen (Tylenol Tab) 500 mg Q6H PRN PO PAIN AND OR ELEVATED TEMP; Start 06/12/17 at 22:00 Amlodipine Besylate (Norvasc) 5 mg DAILY PO Last administered on 06/18/17 09: 04; Admin Dose 5 MG; Start 06/13/17 at 09:00 Bisoprolol Fumarate (Zebeta) 5 mg DAILY PO Last administered on 06/18/17 09: 04; Admin Dose 5 MG; Start 06/13/17 at 09:00 Levothyroxine Sodium (Synthroid) 100 mcg DAILY@06 PO Last administered on 06/18 06:10; Admin Dose 100 MCG; Start 06/13/17 at 06:00 Lorazepam (Ativan) 0.5 mg Q6H PRN PO ANXIETY Last administered on 06/17/17 20 :49; Admin Dose 0.5 MG; Start 06/12/17 at 22:00 Benazepril HCl (Lotensin) 12.5 mg DAILY PO Last administered on 06/18/17 09: 04; Admin Dose 12.5 MG; Start 06/13/17 at 09:00 Docusate Sodium (Colace) 100 mg Q12H PRN PO CONSTIPATION Last administered on 06/17/17 20:49; Admin Dose 100 MG; Start 06/17/17 at 18:00 RESHMA JONES MD Jun 18, 2017 13:41
--- NOTE | 2017-06-18 19:34 | CONS ---
Date/Time of Note Date/Time of Note DATE: 06/18/17 TIME: 19:32 Consult Date/Type/Reason Admit Date/Time Jun 15, 2017 at 09:41 Initial Consult Date 06/13/17 Type of Consultation: Urology Reason for Consultation Gross painless hematuria Ordering Provider: NOVA BOBBY MD Subjective Patient states she still passing blood at the start of the urine without having any pain Objective Vital Signs Date Time Temp Pulse Resp B/P Pulse Ox O2 Delivery O2 Flow Rate FiO2 06/18/17 08:07 98.4 74 18 142/65 97 Intake and Output 06/17/17 06/17/17 06/18/17 15:00 23:00 07:00 Intake Total 1930 ml 1000 ml Output Total 1200 ml Balance 730 ml 1000 ml Exam The patient is alert awake and comfortable the abdomen is soft there is no abdominal tenderness and there is no flank tenderness Results/Medications Result Diagram: 06/16/17 0453 06/17/17 0504 Medications Current Medications Dextrose/Sodium Chloride 1,000 ml @ 75 mls/hr [id number] IV Last administered on 06/18/17 06:15; Admin Dose 75 MLS/HR; Start 06/12/17 at 22:00 Ceftriaxone Sodium (Rocephin) 50 ml @ 100 mls/hr Q24H IVPB Last administered on 06/17/17 21:00; Admin Dose 100 MLS/HR; Start 06/12/17 at 22:00 Acetaminophen (Tylenol Tab) 500 mg Q6H PRN PO PAIN AND OR ELEVATED TEMP; Start 06/12/17 at 22:00 Amlodipine Besylate (Norvasc) 5 mg DAILY PO Last administered on 06/18/17 09: 04; Admin Dose 5 MG; Start 06/13/17 at 09:00 Bisoprolol Fumarate (Zebeta) 5 mg DAILY PO Last administered on 06/18/17 09: 04; Admin Dose 5 MG; Start 06/13/17 at 09:00 Levothyroxine Sodium (Synthroid) 100 mcg DAILY@06 PO Last administered on 06/18 06:10; Admin Dose 100 MCG; Start 06/13/17 at 06:00 Lorazepam (Ativan) 0.5 mg Q6H PRN PO ANXIETY Last administered on 06/17/17 20 :49; Admin Dose 0.5 MG; Start 06/12/17 at 22:00 Benazepril HCl (Lotensin) 12.5 mg DAILY PO Last administered on 06/18/17 09: 04; Admin Dose 12.5 MG; Start 06/13/17 at 09:00 Docusate Sodium (Colace) 100 mg Q12H PRN PO CONSTIPATION Last administered on 06/17/17 20:49; Admin Dose 100 MG; Start 06/17/17 at 18:00 Assessment/Plan Chief Complaint/Hosp Course 89-year-old female had gross painless hematuria, urine cultures showing more than 100,000 gram-negative rods sensitive to all antibiotics tested. CT scan of the abdomen and pelvis without IV contrast did not show any parenchymal tumor. For now we will continue her antibiotic. Plan: cystoscopy and retrograde pyelograms and possible TUR bladder tumor and or biopsy for Monday at 5:30 PM. Problems: GABBY ARMSTRONG MD Jun 18, 2017 19:34
[2017-06-18 19:59] VITALS: BP 133/63; RESP 16
[2017-06-18] MEDS: LORAZEPAM 0.5 MG TAB PO PRN (21:39)
[2017-06-18] MEDS: CEFTRIAXONE 1 GM/50 ML (PMX) 50 ML IVPB SCH (21:39)
[2017-06-19] VITALS (15 sets, daily range): BP systolic 126–196; BP diastolic 61–86; PULSE 78–92; RESP 12–22
[2017-06-19] MEDS: LEVOTHYROXINE 100 MCG TAB PO SCH (05:27)
[2017-06-19] MEDS: DEXTROSE 5%-0.45% NACL 1,000 ML IV SCH ×3 (05:27→23:53)
[2017-06-19 06:37] LABS: BASOPHILS % 0.6 % (0.0-2.0); EOSINOPHILS # 0.2 10^3/ul (0.0-0.5); EOSINOPHILS % 3.2 % (0.0-7.0); HEMATOCRIT 35.7 % (37.0-47.0); HEMOGLOBIN 12.3 g/dl (12.0-16.0); LYMPHOCYTES # 1.7 10^3/ul (0.8-2.9); LYMPHOCYTES % 26.9 % (15.0-51.0); MEAN CORPUSCULAR HEMOGLOBIN 32.4 pg (29.0-33.0); MEAN CORPUSCULAR HGB CONC 34.5 g/dl (32.0-37.0); MEAN CORPUSCULAR VOLUME 93.9 fl (82.0-101.0); MEAN PLATELET VOLUME 9.2 fl (7.4-10.4); MONOCYTE # 0.9 10^3/ul (0.3-0.9); MONOCYTES % 14.2 % (0.0-11.0); NEUTROPHIL # 3.4 10^3/ul (1.6-7.5); NEUTROPHILS % 54.8 % (39.0-77.0); PLATELET COUNT 298 10^3/UL (140-415); RED CELL DISTRIBUTION WIDTH 12.9 % (11.5-14.5); WHITE BLOOD COUNT 6.2 10^3/ul (4.8-10.8)
[2017-06-19] MEDS ORDERED: ATROPINE 1 MG/10 ML SYRINGE ONE (07:00)
[2017-06-19] MEDS ORDERED: EPHEDrine SULFATE 50 MG/5 ML SYG ONE (07:00)
[2017-06-19 07:11] LABS: CALCIUM 8.6 mg/dl (8.4-10.2); CREATININE 0.8 mg/dl (0.44-1.00); POTASSIUM 3.7 mmol/L (3.5-5.1)
[2017-06-19] MEDS: BISOPROLOL 5 MG TAB PO SCH (08:14)
[2017-06-19] MEDS: AMLODIPINE 5 MG TAB PO SCH (08:14)
[2017-06-19] MEDS: BENAZEPRIL 20 MG TAB PO SCH (08:15)
--- NOTE | 2017-06-19 14:44 | PN ---
Date/Time of Note Date/Time of Note DATE: 06/19/17 TIME: 14:42 Assessment/Plan VTE Prophylaxis VTE Prophylaxis Intervention: ambulation Lines/Catheters IV Catheter Type (from Nrs): Peripheral IV Urinary Cath still in place: No Assessment/Plan Assessment/Plan A: hematuria UTI hydronephrosis P: cystoscopy today cont current rx Subjective 24 Hr Interval Summary Free Text/Dictation Pt with persistent hematuria, awaiting cystoscopy today. No dysuria, back pain , abd pain, cp, sob. Exam/Review of Systems Vital Signs Vitals Vital Signs Date Time Temp Pulse Resp B/P Pulse Ox O2 Delivery O2 Flow Rate FiO2 06/19/17 08:00 98.0 61 18 147/66 99 Intake and Output 06/18/17 06/18/17 06/19/17 15:00 23:00 07:00 Intake Total 1660 ml 1280 ml Output Total 850 ml 600 ml Balance 810 ml 680 ml Exam gen- nad, nontoxic lungs- CTA heart- RRR abd- +BS, soft, nontender, no cvat ext- no cce. Results Result Diagram: 06/19/17 0500 06/19/17 0500 Results 24 hrs Laboratory Tests Test 06/19/17 05:00 White Blood Count 6.2 Red Blood Count 3.80 L Hemoglobin 12.3 Hematocrit 35.7 L Mean Corpuscular Volume 93.9 Mean Corpuscular Hemoglobin 32.4 Mean Corpuscular Hemoglobin Concent 34.5 Red Cell Distribution Width 12.9 Platelet Count 298 # Mean Platelet Volume 9.2 Neutrophils % 54.8 Lymphocytes % 26.9 Monocytes % 14.2 H Eosinophils % 3.2 Basophils % 0.6 Nucleated Red Blood Cells % 0.0 Neutrophils # 3.4 Lymphocytes # 1.7 Monocytes # 0.9 Eosinophils # 0.2 Basophils # 0.0 Nucleated Red Blood Cells # 0.0 Sodium Level 141 Potassium Level 3.7 Chloride Level 103 Carbon Dioxide Level 28 Anion Gap 14 Blood Urea Nitrogen 15 Creatinine 0.80 Glucose Level 92 Calcium Level 8.6 Medications Medications Current Medications Dextrose/Sodium Chloride 1,000 ml @ 75 mls/hr [id number] IV Last administered on 06/19/17t 05:27; Admin Dose 75 MLS/HR; Start 06/12/17 at 22:00 Ceftriaxone Sodium (Rocephin) 50 ml @ 100 mls/hr Q24H IVPB Last administered on 06/18/17 21:39; Admin Dose 100 MLS/HR; Start 06/12/17 at 22:00 Acetaminophen (Tylenol Tab) 500 mg Q6H PRN PO PAIN AND OR ELEVATED TEMP; Start 06/12/17 at 22:00 Amlodipine Besylate (Norvasc) 5 mg DAILY PO Last administered on 06/19/17 08: 14; Admin Dose 5 MG; Start 06/13/17 at 09:00 Bisoprolol Fumarate (Zebeta) 5 mg DAILY PO Last administered on 06/19/17 08: 14; Admin Dose 5 MG; Start 06/13/17 at 09:00 Levothyroxine Sodium (Synthroid) 100 mcg DAILY@06 PO Last administered on 06/19 05:27; Admin Dose 100 MCG; Start 06/13/17 at 06:00 Lorazepam (Ativan) 0.5 mg Q6H PRN PO ANXIETY Last administered on 06/18/17 21 :39; Admin Dose 0.5 MG; Start 06/12/17 at 22:00 Benazepril HCl (Lotensin) 12.5 mg DAILY PO Last administered on 06/19/17 08: 15; Admin Dose 12.5 MG; Start 06/13/17 at 09:00 Docusate Sodium (Colace) 100 mg Q12H PRN PO CONSTIPATION Last administered on 06/17/17 20:49; Admin Dose 100 MG; Start 06/17/17 at 18:00 RESHMA JONES MD Jun 19, 2017 14:44
[2017-06-19] MEDS ORDERED: IOHEXOL 300MG/ML 30 ML BTL ONE (17:25)
--- NOTE | 2017-06-19 17:29 | HPN ---
Date/Time of Note Date/Time of Note DATE: 06/19/17 TIME: 17:29 Interval H&P Admission Note Pt. seen H&P reviewed: No system changes GABBY ARMSTRONG MD Jun 19, 2017 17:29
[2017-06-19] MEDS ORDERED: FENTAnyl 50 MCG/ML VIAL ONE (17:58)
[2017-06-19] MEDS ORDERED: MIDAZOLAM 1 MG/ML 2 ML INJ ONE (17:58)
[2017-06-19] MEDS ORDERED: DEXAMETHASONE 4 MG/ML 1 ML INJ ONE (18:38)
[2017-06-19] MEDS ORDERED: LIDOCAINE 2% (SDV) 5 ML INJ ONE (19:02)
[2017-06-19] MEDS ORDERED: GLYCOPYRROLATE 0.4 MG INJ ONE (19:02)
[2017-06-19] MEDS ORDERED: ONDANSETRON 4 MG INJ ONE (19:02)
[2017-06-19] MEDS ORDERED: PROPOFOL 20 ML ONE (19:02)
[2017-06-19] MEDS ORDERED: EPHEDrine SULFATE 50 MG/5 ML SYG IV PRN (19:30)
[2017-06-19] MEDS ORDERED: KETOROLAC 30 MG INJ IV PRN (19:30)
[2017-06-19] MEDS ORDERED: FENTAnyl 50 MCG/ML VIAL IV PRN ×3 (19:30)
[2017-06-19] MEDS ORDERED: hydrALAzine 20 MG INJ IV PRN (19:30)
[2017-06-19] MEDS ORDERED: MEPERIDINE 25 MG INJ IV PRN (19:30)
[2017-06-19] MEDS ORDERED: METOCLOPRAMIDE 10 MG INJ IV PRN (19:30)
[2017-06-19] MEDS ORDERED: ONDANSETRON 4 MG INJ IV PRN (19:30)
[2017-06-19] MEDS ORDERED: OXYCODONE/ACETAMINOPHEN (5/325) TAB PO PRN ×2 (19:30)
--- NOTE | 2017-06-19 19:40 | OPR ---
Date/Time of Note Date/Time of Note DATE: 06/19/17 TIME: 19:33 Operative Report Procedure Date: Jun 19, 2017 Preoperative Diagnosis Gross hematuria Postoperative Diagnosis Gross hematuria, bleeding from the right kidney. Urine from the left kidney is clear Operation/Procedure Performed Cystoscopy bilateral retrograde pyelograms and right renal washings for cytology Surgeon see signature line Ladle Liner None Anesthesia Type: general Anesthesiologist: WILBER DOLL Estimated Blood Loss: none Transfusion none Specimen Urine from the bladder for culture and sensitivity, urine from right kidney for cytology and washings from the right kidney for cytology Grafts/Implants none Complications none Pt Condition Post Procedure: stable Disposition: PACU Indications Gross painless hematuria Procedure Description The patient was brought to the operating room and given general anesthesia. Timeout was done, the patient was identified by her name, birthdate, the procedure. Patient has been on ceftriaxone and she did not need any additional antibiotic at the start of the procedure.. The patient was positioned in the lithotomy position and the genital area was prepped and draped in the usual sterile manner. #21 Bulgarian cystoscope sheath was introduced into the bladder and the bladder was drained and urine was sent for culture and sensitivity the bladder had a lot of blood in it and small blood clots. There was no evidence of bladder tumor or ulcerations or stones. The ureteral orifices were identified and one could see a jet of blood coming out from the right ureteral orifice. The left ureteral orifice was also inspected and clear urine was seen coming out of. Bilateral retrograde pyelograms were then done. They left retrograde pyelogram is normal. 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 I could not see any defect within the contrast material to suggest a space-occupying tumor. I did pass a 5 Bulgarian open ended ureteral catheter all the way to the kidney under fluoroscopy and then irrigated the collecting system with normal saline and collected the fluid and send it for cytology. The right ureter appeared to be normal. At the end of the procedure the bladder was empty and the patient was transferred to the recovery room in stable and satisfactory condition GABBY ARMSTRONG MD Jun 19, 2017 19:40
--- NOTE | 2017-06-19 21:39 | RADRPT ---
PROCEDURE: Intraoperative imaging of the abdomen and pelvis with fluoroscopy. Bilateral retrograd e urogram. CLINICAL INDICATION: Abdominal pain. Intraoperative. TECHNIQUE: 48 images of the abdomen and pelvis were obtained in the operating room with an image i ntensifier. No radiologist was in attendance. Fluoroscopy time is 4.1 minutes. COMPARISON: CT scan of the abdomen and pelvis dated 06/12/2017. FINDINGS: Images demonstrate contrast injection bilaterally in the ureters and intrarenal collecting systems. There is mild to moderate right ureteropelvic junction obstruction. The configuration of the left ur eteropelvic junction is normal. There is no filling defect on either side. Surgical clips are presen t in both inguinal regions. IMPRESSION: 1. Mild to moderate right ureteropelvic junction obstruction. 2. No filling defect on either side. 3. Prior bilateral inguinal surgery. RPTAT: QQ .Mc Caldera MD, Date Time Electronically viewed and signed by .Mc Caldera MD, on 06/19/2017 21:39 .R/
[2017-06-19] MEDS: CEFTRIAXONE 1 GM/50 ML (PMX) 50 ML IVPB SCH (21:52)
[2017-06-19] MEDS: LORAZEPAM 0.5 MG TAB PO PRN (22:21)
[2017-06-20 02:15] VITALS: BP 123/71; RESP 20
[2017-06-20] MEDS: LEVOTHYROXINE 100 MCG TAB PO SCH (05:19)
[2017-06-20 07:55] VITALS: BP 130/88; RESP 16
[2017-06-20] MEDS: BENAZEPRIL 20 MG TAB PO SCH (08:05)
[2017-06-20] MEDS: AMLODIPINE 5 MG TAB PO SCH (08:05)
[2017-06-20] MEDS: BISOPROLOL 5 MG TAB PO SCH (08:05)
[2017-06-20] MEDS: DEXTROSE 5%-0.45% NACL 1,000 ML IV SCH ×2 (11:14→23:57)
[2017-06-20 14:35] VITALS: BP 143/63; RESP 16
--- NOTE | 2017-06-20 18:01 | PN ---
Date/Time of Note Date/Time of Note DATE: 06/20/17 TIME: 17:57 Assessment/Plan VTE Prophylaxis VTE Prophylaxis Intervention: ambulation Lines/Catheters IV [facility]ter Type (from [facility]): Peripheral IV Urinary Cath still in place: No Assessment/Plan Assessment/Plan A: hematuria UTI HTN hydronephrosis P: await further urology recs cont current rx Subjective 24 Hr Interval Summary Free Text/Dictation Pt with cystoscopy, retrograde pyelogram yesterday, findings noted. Pt with persistent hematuria, no pain. No cp, sob, dizziness. Had elevated bp post procedure, but subsequently improved. Exam/Review of Systems Vital Signs Vitals Vital Signs Date Time Temp Pulse Resp B/P Pulse Ox O2 Delivery O2 Flow Rate FiO2 06/20/17 14:35 97.4 71 16 143/63 99 06/19/17 19:57 Nasal Cannula 06/19/17 19:41 2.0 Intake and Output 06/19/17 06/19/17 06/20/17 15:00 23:00 07:00 Intake Total 1710 ml 750 ml Output Total 800 ml 400 ml Balance 910 ml 350 ml Exam gen- nad, nontoxic lungs- CTA heart- RRR abd- +BS, soft, nontender ext- no cce. Results Result Diagram: 06/19/17 0500 06/19/17 0500 Medications Medications Current Medications Dextrose/Sodium Chloride 1,000 ml @ 75 mls/hr [id number] IV Last administered on 06/20/17 11:14; Admin Dose 75 MLS/HR; Start 06/12/17 at 22:00 Ceftriaxone Sodium (Rocephin) 50 ml @ 100 mls/hr Q24H IVPB Last administered on 06/19/17 21:52; Admin Dose 100 MLS/HR; Start 06/12/17 at 22:00 Acetaminophen (Tylenol Tab) 500 mg Q6H PRN PO PAIN AND OR ELEVATED TEMP; Start 06/12/17 at 22:00 Amlodipine Besylate (Norvasc) 5 mg DAILY PO Last administered on 06/20/17 08: 05; Admin Dose 5 MG; Start 06/13/17 at 09:00 Bisoprolol Fumarate (Zebeta) 5 mg DAILY PO Last administered on 06/20/17 08: 05; Admin Dose 5 MG; Start 06/13/17 at 09:00 Levothyroxine Sodium (Synthroid) 100 mcg DAILY@06 PO Last administered on 06/20 05:19; Admin Dose 100 MCG; Start 06/13/17 at 06:00 Lorazepam (Ativan) 0.5 mg Q6H PRN PO ANXIETY Last administered on 06/19/17 22 :21; Admin Dose 0.5 MG; Start 06/12/17 at 22:00 Benazepril HCl (Lotensin) 12.5 mg DAILY PO Last administered on 06/20/17 08: 05; Admin Dose 12.5 MG; Start 06/13/17 at 09:00 Docusate Sodium (Colace) 100 mg Q12H PRN PO CONSTIPATION Last administered on 06/17/17 20:49; Admin Dose 100 MG; Start 06/17/17 at 18:00 Clonidine (Catapres) 0.1 mg Q12H PRN PO SBP >170; Start 06/19/17 at 21:00 RESHMA JONES MD Jun 20, 2017 18:01
[2017-06-20 20:51] VITALS: BP 144/66; RESP 18
[2017-06-20] MEDS: CEFTRIAXONE 1 GM/50 ML (PMX) 50 ML IVPB SCH (22:31)
[2017-06-20] MEDS: LORAZEPAM 0.5 MG TAB PO PRN (22:31)
[2017-06-21 02:11] VITALS: BP 148/63; RESP 18
[2017-06-21] MEDS: LEVOTHYROXINE 100 MCG TAB PO SCH (05:28)
[2017-06-21 05:51] LABS: BASOPHILS % 0.3 % (0.0-2.0); EOSINOPHILS # 0.1 10^3/ul (0.0-0.5); EOSINOPHILS % 0.6 % (0.0-7.0); HEMATOCRIT 34.1 % (37.0-47.0); HEMOGLOBIN 11.7 g/dl (12.0-16.0); LYMPHOCYTES # 1.5 10^3/ul (0.8-2.9); MEAN CORPUSCULAR HEMOGLOBIN 32.3 pg (29.0-33.0); MEAN CORPUSCULAR HGB CONC 34.3 g/dl (32.0-37.0); MEAN CORPUSCULAR VOLUME 94.2 fl (82.0-101.0); MEAN PLATELET VOLUME 9.1 fl (7.4-10.4); MONOCYTE # 1.1 10^3/ul (0.3-0.9); MONOCYTES % 10.9 % (0.0-11.0); NEUTROPHIL # 7.4 10^3/ul (1.6-7.5); NEUTROPHILS % 72.8 % (39.0-77.0); PLATELET COUNT 337 10^3/UL (140-415); RED BLOOD COUNT 3.62 10^6/ul (4.20-5.40); RED CELL DISTRIBUTION WIDTH 12.6 % (11.5-14.5); WHITE BLOOD COUNT 10.1 10^3/ul (4.8-10.8)
[2017-06-21 06:40] LABS: CALCIUM 8.8 mg/dl (8.4-10.2); CREATININE 0.8 mg/dl (0.44-1.00); POTASSIUM 4.1 mmol/L (3.5-5.1)
[2017-06-21 08:22] VITALS: BP 147/65; RESP 20
--- NOTE | 2017-06-21 08:31 | CONS ---
Date/Time of Note Date/Time of Note DATE: 06/21/17 TIME: 08:29 Consult Date/Type/Reason Admit Date/Time Jun 15, 2017 at 09:41 Initial Consult Date 06/13/17 Type of Consultation: Urology Reason for Consultation Gross hematuria Ordering Provider: NOVA BOBBY MD Subjective Patient denies any pain and states that the hematuria has stopped yesterday evening Objective Vital Signs Date Time Temp Pulse Resp B/P Pulse Ox O2 Delivery O2 Flow Rate FiO2 06/21/17 08:22 98.0 65 20 147/65 98 06/19/17 19:57 Nasal Cannula 06/19/17 19:41 2.0 Intake and Output 06/20/17 06/20/17 06/21/17 15:00 23:00 07:00 Intake Total 450 ml 1100 ml 815 ml Output Total 1200 ml Balance 450 ml -100 ml 815 ml Exam Abdomen soft there is no tenderness Results/Medications Result Diagram: 06/21/17 0455 06/21/17 0455 Results 24 hrs Laboratory Tests Test 06/21/17 04:55 White Blood Count 10.1 # Red Blood Count 3.62 L Hemoglobin 11.7 L Hematocrit 34.1 L Mean Corpuscular Volume 94.2 Mean Corpuscular Hemoglobin 32.3 Mean Corpuscular Hemoglobin Concent 34.3 Red Cell Distribution Width 12.6 Platelet Count 337 Mean Platelet Volume 9.1 Neutrophils % 72.8 Lymphocytes % 15.0 Monocytes % 10.9 Eosinophils % 0.6 Basophils % 0.3 Nucleated Red Blood Cells % 0.0 Neutrophils # 7.4 Lymphocytes # 1.5 Monocytes # 1.1 H Eosinophils # 0.1 Basophils # 0.0 Nucleated Red Blood Cells # 0.0 Sodium Level 140 Potassium Level 4.1 Chloride Level 104 Carbon Dioxide Level 28 Anion Gap 12 Blood Urea Nitrogen 19 Creatinine 0.80 Glucose Level 113 Calcium Level 8.8 Medications Current Medications Dextrose/Sodium Chloride 1,000 ml @ 75 mls/hr [id number] IV Last administered on 06/20/17 23:57; Admin Dose 75 MLS/HR; Start 06/12/17 at 22:00 Ceftriaxone Sodium (Rocephin) 50 ml @ 100 mls/hr Q24H IVPB Last administered on 06/20/17 22:31; Admin Dose 100 MLS/HR; Start 06/12/17 at 22:00 Acetaminophen (Tylenol Tab) 500 mg Q6H PRN PO PAIN AND OR ELEVATED TEMP; Start 06/12/17 at 22:00 Amlodipine Besylate (Norvasc) 5 mg DAILY PO Last administered on 06/20/17 08: 05; Admin Dose 5 MG; Start 06/13/17 at 09:00 Bisoprolol Fumarate (Zebeta) 5 mg DAILY PO Last administered on 06/20/17 08: 05; Admin Dose 5 MG; Start 06/13/17 at 09:00 Levothyroxine Sodium (Synthroid) 100 mcg DAILY@06 PO Last administered on 06/21 05:28; Admin Dose 100 MCG; Start 06/13/17 at 06:00 Lorazepam (Ativan) 0.5 mg Q6H PRN PO ANXIETY Last administered on 06/20/17 22 :31; Admin Dose 0.5 MG; Start 06/12/17 at 22:00 Benazepril HCl (Lotensin) 12.5 mg DAILY PO Last administered on 06/20/17 08: 05; Admin Dose 12.5 MG; Start 06/13/17 at 09:00 Docusate Sodium (Colace) 100 mg Q12H PRN PO CONSTIPATION Last administered on 06/17/17 20:49; Admin Dose 100 MG; Start 06/17/17 at 18:00 Clonidine (Catapres) 0.1 mg Q12H PRN PO SBP >170; Start 06/19/17 at 21:00 Assessment/Plan Chief Complaint/Hosp Course 89-year-old female had gross painless hematuria, urine cultures showing more than 100,000 gram-negative rods sensitive to all antibiotics tested. CT scan of the abdomen and pelvis without IV contrast did not show any parenchymal tumor. The patient is status post cystoscopy and bilateral retrograde pyelograms. The patient was found to have the bleeding coming from her right kidney. Cytology has been sent from the right kidney and the result is pending. Problems: GABBY ARMSTRONG MD Jun 21, 2017 08:31
[2017-06-21] MEDS: BISOPROLOL 5 MG TAB PO SCH (10:13)
[2017-06-21] MEDS: BENAZEPRIL 20 MG TAB PO SCH (10:13)
[2017-06-21] MEDS: AMLODIPINE 5 MG TAB PO SCH (10:14)
--- NOTE | 2017-06-21 10:24 | PN ---
Date/Time of Note Date/Time of Note DATE: 06/21/17 TIME: 10:21 Assessment/Plan VTE Prophylaxis VTE Prophylaxis Intervention: ambulation Lines/Catheters IV Catheter Type (from [facility]): Peripheral IV Urinary Cath still in place: No Assessment/Plan Assessment/Plan A: hematuria UTI resolved P: CT scan as per urology cont current rx d/c rocephin Subjective 24 Hr Interval Summary Free Text/Dictation Pt feeling pretty well. Urine now just a faint pink. No dysuria, abd pain, back pain, cp, sob, dizziness. Pt to have CT scan today. Exam/Review of Systems Vital Signs Vitals Vital Signs Date Time Temp Pulse Resp B/P Pulse Ox O2 Delivery O2 Flow Rate FiO2 06/21/17 08:22 98.0 65 20 147/65 98 06/19/17 19:57 Nasal Cannula 06/19/17 19:41 2.0 Intake and Output 06/20/17 06/20/17 06/21/17 15:00 23:00 07:00 Intake Total 450 ml 1100 ml 815 ml Output Total 1200 ml Balance 450 ml -100 ml 815 ml Exam gen- nad, nontoxic lungs- CTA heart- RRR abd- +BS, soft, nontender ext- no cce. Results Result Diagram: 06/21/17 0455 06/21/17 0455 Results 24 hrs Laboratory Tests Test 06/21/17 04:55 White Blood Count 10.1 # Red Blood Count 3.62 L Hemoglobin 11.7 L Hematocrit 34.1 L Mean Corpuscular Volume 94.2 Mean Corpuscular Hemoglobin 32.3 Mean Corpuscular Hemoglobin Concent 34.3 Red Cell Distribution Width 12.6 Platelet Count 337 Mean Platelet Volume 9.1 Neutrophils % 72.8 Lymphocytes % 15.0 Monocytes % 10.9 Eosinophils % 0.6 Basophils % 0.3 Nucleated Red Blood Cells % 0.0 Neutrophils # 7.4 Lymphocytes # 1.5 Monocytes # 1.1 H Eosinophils # 0.1 Basophils # 0.0 Nucleated Red Blood Cells # 0.0 Sodium Level 140 Potassium Level 4.1 Chloride Level 104 Carbon Dioxide Level 28 Anion Gap 12 Blood Urea Nitrogen 19 Creatinine 0.80 Glucose Level 113 Calcium Level 8.8 Medications Medications Current Medications Dextrose/Sodium Chloride 1,000 ml @ 75 mls/hr [id number] IV Last administered on 06/20/17 23:57; Admin Dose 75 MLS/HR; Start 06/12/17 at 22:00 Ceftriaxone Sodium (Rocephin) 50 ml @ 100 mls/hr Q24H IVPB Last administered on 06/20/17 22:31; Admin Dose 100 MLS/HR; Start 06/12/17 at 22:00 Acetaminophen (Tylenol Tab) 500 mg Q6H PRN PO PAIN AND OR ELEVATED TEMP; Start 06/12/17 at 22:00 Amlodipine Besylate (Norvasc) 5 mg DAILY PO Last administered on 06/21/17 10: 14; Admin Dose 5 MG; Start 06/13/17 at 09:00 Bisoprolol Fumarate (Zebeta) 5 mg DAILY PO Last administered on 06/21/17 10: 13; Admin Dose 5 MG; Start 06/13/17 at 09:00 Levothyroxine Sodium (Synthroid) 100 mcg DAILY@06 PO Last administered on 06/21 05:28; Admin Dose 100 MCG; Start 06/13/17 at 06:00 Lorazepam (Ativan) 0.5 mg Q6H PRN PO ANXIETY Last administered on 06/20/17 22 :31; Admin Dose 0.5 MG; Start 06/12/17 at 22:00 Benazepril HCl (Lotensin) 12.5 mg DAILY PO Last administered on 06/21/17 10: 13; Admin Dose 12.5 MG; Start 06/13/17 at 09:00 Docusate Sodium (Colace) 100 mg Q12H PRN PO CONSTIPATION Last administered on 06/17/17 20:49; Admin Dose 100 MG; Start 06/17/17 at 18:00 Clonidine (Catapres) 0.1 mg Q12H PRN PO SBP >170; Start 06/19/17 at 21:00 RESHMA JONES MD Jun 21, 2017 10:24
[2017-06-21] MEDS ORDERED: SOD CHLORIDE 0.9% 100 ML ONE (10:59)
[2017-06-21] MEDS ORDERED: IOHEXOL 300MG/ML 150 ML BTL ONE (10:59)
--- NOTE | 2017-06-21 13:45 | RADRPT ---
AMENDMENT: 06/21/2017 4:16:39 PM Quincy Best M.d Additional images were made available. This report will replace the prior report. PROCEDURE: CT Abdomen and Pelvis without and with contrast - urogram protocol CLINICAL INDICATION: Hematuria TECHNIQUE: CT scan of the abdomen and pelvis with contrast was performed on a multidetector high-r esolution CT scanner. Coronal and sagittal reformatted images were obtained from the axial source im ages. Images were reviewed on a high-resolution PACS workstation. 80 cc of Isovue 300 iodinated cont rast was administered intravenously without reported complication. The total exam CTDI equals 6/7/9 /7 mGy and the total exam DLP equals 1183 mGy-cm. One or more of the following dose reduction techn iques were used: Automated exposure control, Adjustment of the mA and/or kV according to patient siz e, and/or use of iterative reconstruction technique. DICOM images are available. COMPARISON: Abdominal CT 06/12/2017 FINDINGS: UROGRAM: Mild bilateral renal pelviectasis, unchanged. Punctate nonobstructive right renal stone, unchanged. Incomplete contrast enhancement of the portions of the bilateral distal ureters due to ureteral francisco stalsis on the excretory phase limits evaluation. No renal pelvis or proximal intraluminal ureteral filling defects are seen. Bilateral ureteral jets are visualized on excretory phase. Small amount of air visualized within the bladder. OTHER FINDINGS: The lung bases are clear. Right hepatic cyst. Small hiatal hernia. The pancreas, spleen, and adrenals are grossly unremarkable. No focal pericholecystic inflammatory changes. No bowel obstruction. The appendix is not visualized but there is no focal inflammatory stranding i n the right lower quadrant. Scattered colonic diverticulosis. No significant retroperitoneal lymphadenopathy, ascites or evidence of pneumoperitoneum. Aortoiliac atherosclerosis. Uterus is absent. Bilateral inguinal surgical clips. Degenerative changes of the spine. IMPRESSION: Mild bilateral renal pelviectasis, unchanged. Punctate nonobstructive right renal stone, unchanged. Incomplete contrast enhancement of the portions of the bilateral distal ureters due to ureteral francisco stalsis on the excretory phase limits complete evaluation. However, there is no renal pelvis or prox imal intraluminal ureteral filling defects to suggest a proximal urothelial neoplasm or other proxim al obstructing lesion. Bilateral ureteral jets are visualized on excretory phase. Small amount of air visualized within the bladder which could be due to recent instrumentation or cy stitis. RPTAT: AA PROCEDURE: CT Abdomen and Pelvis without contrast. CLINICAL INDICATION: Abdominal pain ; hematuria TECHNIQUE: CT scan of the abdomen and pelvis was performed on a multidetector high-resolution CT s canner without intravenous contrast. Coronal and sagittal reformatted images were obtained from the axial source images. Images were reviewed on a high-resolution PACS workstation. The total exam CTD I equals 6/7/9/7mGy and the total exam DLP equals 1183mGy-cm. One or more of the following dose redu ction techniques were used: Automated exposure control, Adjustment of the mA and/or kV according to patient size, and/or use of iterative reconstruction technique. DICOM images are available. COMPARISON: Abdominal CT 06/12/2017 FINDINGS: Evaluation of the solid organs is limited given the lack of intravenous contrast administration. The lung bases are clear. Right hepatic cyst. Small hiatal hernia. The pancreas, spleen, and adrenals are grossly unremarkable. No focal pericholecystic inflammatory changes. Mild bilateral renal pelviectasis, unchanged. Punctate nonobstructive right renal stone, unchanged. No bowel obstruction. The appendix is not visualized but there is no focal inflammatory stranding i n the right lower quadrant. Scattered colonic diverticulosis. No significant retroperitoneal lymphadenopathy, ascites or evidence of pneumoperitoneum. Aortoiliac atherosclerosis. Uterus is absent. Bilateral inguinal surgical clips. Degenerative changes of the spine. IMPRESSION: No significant change identified since 06/12/2017 Punctate right renal nonobstructing stone. Mild bilateral renal pelviectasis. Colonic diverticulosis without evidence of acute diverticulitis. No evidence of bowel obstruction or appendicitis. RPTAT: AA .Quincy Best MD, MD Date Time Electronically viewed and signed by .Quincy Best MD, MD on 06/21/2017 16:16 .T/
[2017-06-21 15:11] VITALS: BP 140/67; RESP 18
[2017-06-21] MEDS: DEXTROSE 5%-0.45% NACL 1,000 ML IV SCH (18:01)
[2017-06-21 20:32] VITALS: BP 128/61; RESP 18
[2017-06-21] MEDS: LORAZEPAM 0.5 MG TAB PO PRN (21:46)
[2017-06-22 02:15] VITALS: BP 131/65; RESP 18
[2017-06-22] MEDS: LEVOTHYROXINE 100 MCG TAB PO SCH (05:24)
[2017-06-22 06:51] LABS: BASOPHILS % 0.4 % (0.0-2.0); EOSINOPHILS # 0.3 10^3/ul (0.0-0.5); EOSINOPHILS % 3.7 % (0.0-7.0); LYMPHOCYTES # 2.8 10^3/ul (0.8-2.9); LYMPHOCYTES % 36.8 % (15.0-51.0); MEAN CORPUSCULAR HEMOGLOBIN 32.5 pg (29.0-33.0); MEAN CORPUSCULAR HGB CONC 34.3 g/dl (32.0-37.0); MEAN CORPUSCULAR VOLUME 94.9 fl (82.0-101.0); MEAN PLATELET VOLUME 8.9 fl (7.4-10.4); MONOCYTES % 13.6 % (0.0-11.0); NEUTROPHIL # 3.4 10^3/ul (1.6-7.5); NEUTROPHILS % 45.1 % (39.0-77.0); PLATELET COUNT 340 10^3/UL (140-415); RED BLOOD COUNT 3.69 10^6/ul (4.20-5.40); WHITE BLOOD COUNT 7.6 10^3/ul (4.8-10.8)
[2017-06-22 07:16] LABS: CALCIUM 8.7 mg/dl (8.4-10.2); CREATININE 0.8 mg/dl (0.44-1.00); POTASSIUM 3.8 mmol/L (3.5-5.1)
[2017-06-22 07:30] VITALS: BP 156/71; RESP 18
[2017-06-22] MEDS: AMLODIPINE 5 MG TAB PO SCH ×2 (08:31→09:00)
[2017-06-22] MEDS: BISOPROLOL 5 MG TAB PO SCH (08:31)
[2017-06-22] MEDS: BENAZEPRIL 20 MG TAB PO SCH ×2 (08:31→09:00)
[2017-06-22] MEDS: DEXTROSE 5%-0.45% NACL 1,000 ML IV SCH (08:32)
--- NOTE | 2017-06-22 13:58 | PN ---
Date/Time of Note Date/Time of Note DATE: 06/22/17 TIME: 13:54 Assessment/Plan VTE Prophylaxis VTE Prophylaxis Intervention: other Lines/Catheters IV [facility] Type [facility] Peripheral IV Urinary Cath still in place: No Assessment/Plan Assessment/Plan A: hematuria - resolved, prob due to UTI UTI HTN P: discussed with Dr. Bruce, will d/c home with 7d more cipro resume outpt meds norvasc 5mg, bioprolol 5mg, levoxyl 100mcg, benazepril hct 20/ 12.5, simvastatin 20mg f/u with Dr. Burce in 2wks f/u with Dr. Glass in 1wk Subjective 24 Hr Interval Summary Free Text/Dictation Pt feeling well. CT scan did not reveal any mass. Hematuria resolved. No urinary sx, cp, sob. Exam/Review of Systems Vital Signs Vitals Vital Signs Date Time Temp Pulse Resp B/P Pulse Ox O2 Delivery O2 Flow Rate FiO2 06/22/17 07:30 98.5 60 18 156/71 97 06/19/17 19:57 Nasal Cannula 06/19/17 19:41 2.0 Intake and Output 06/21/17 06/21/17 06/22/17 14:59 22:59 06:59 Intake Total 1985 ml 780 ml Output Total 1200 ml Balance 785 ml 780 ml Exam gen- nad, nontoxic lungs- cta heart- RRR abd- +BS, soft, nontender ext- no edema. Results Result Diagram: 06/22/17 0601 06/22/17 0601 Results 24 hrs Laboratory Tests Test 06/22/17 06:01 White Blood Count 7.6 # Red Blood Count 3.69 L Hemoglobin 12.0 Hematocrit 35.0 L Mean Corpuscular Volume 94.9 Mean Corpuscular Hemoglobin 32.5 Mean Corpuscular Hemoglobin Concent 34.3 Red Cell Distribution Width 13.0 Platelet Count 340 Mean Platelet Volume 8.9 Neutrophils % 45.1 Lymphocytes % 36.8 Monocytes % 13.6 H Eosinophils % 3.7 Basophils % 0.4 Nucleated Red Blood Cells % 0.0 Neutrophils # 3.4 Lymphocytes # 2.8 Monocytes # 1.0 H Eosinophils # 0.3 Basophils # 0.0 Nucleated Red Blood Cells # 0.0 Sodium Level 139 Potassium Level 3.8 Chloride Level 103 Carbon Dioxide Level 29 Anion Gap 11 Blood Urea Nitrogen 18 Creatinine 0.80 Glucose Level 87 Calcium Level 8.7 Medications Medications Current Medications Dextrose/Sodium Chloride (D5-1/2ns) 1,000 ml @ 75 mls/hr [id number] IV Last administered on 06/21/17 18:01; Admin Dose 75 MLS/HR; Start 06/12/17 at 22:00 Acetaminophen (Tylenol Tab) 500 mg Q6H PRN PO PAIN AND OR ELEVATED TEMP; Start 06/12/17 at 22:00 Amlodipine Besylate (Norvasc) 5 mg DAILY PO Last administered on 06/22/17 08: 31; Admin Dose 5 MG; Start 06/13/17 at 09:00 Bisoprolol Fumarate (Zebeta) 5 mg DAILY PO Last administered on 06/22/17 08: 31; Admin Dose 5 MG; Start 06/13/17 at 09:00 Levothyroxine Sodium (Synthroid) 100 mcg DAILY@06 PO Last administered on 06/22 05:24; Admin Dose 100 MCG; Start 06/13/17 at 06:00 Lorazepam (Ativan) 0.5 mg Q6H PRN PO ANXIETY Last administered on 06/21/17 21 :46; Admin Dose 0.5 MG; Start 06/12/17 at 22:00 Benazepril HCl (Lotensin) 12.5 mg DAILY PO Last administered on 06/22/17 08: 31; Admin Dose 12.5 MG; Start 06/13/17 at 09:00 Docusate Sodium (Colace) 100 mg Q12H PRN PO CONSTIPATION Last administered on 06/17/17 20:49; Admin Dose 100 MG; Start 06/17/17 at 18:00 Clonidine (Catapres) 0.1 mg Q12H PRN PO SBP >170; Start 06/19/17 at 21:00 RESHMA JONES MD Jun 22, 2017 13:58
--- NOTE | 2017-06-22 14:02 | PDOCDIS ---
Discharge Instructions CONDITION Patient Condition: Good FOLLOW UP/APPOINTMENTS Follow-up Plan f/u with Dr. Glass in 1wk, with Dr. Bruce in 2wks OTHER ORDERS: Other Orders: resume home meds fill rx for ciprofloxacin 500mg bid for 7days RESHMA JONES MD Jun 22, 2017 14:01
--- NOTE | 2017-06-22 22:40 | CONS ---
Date/Time of Note Date/Time of Note DATE: 06/22/17 TIME: 22:31 Consult Date/Type/Reason Admit Date/Time Jun 15, 2017 at 09:41 Initial Consult Date 06/13/17 Type of Consultation: Urology Reason for Consultation hematuria and Urinary tract infection Ordering Provider: NOVA BOBBY MD Subjective She is feeling better and states the urine has been clear and no more hematuria Objective Vital Signs Date Time Temp Pulse Resp B/P Pulse Ox O2 Delivery O2 Flow Rate FiO2 06/22/17 07:30 98.5 60 18 156/71 97 06/19/17 19:57 Nasal Cannula 06/19/17 19:41 2.0 Intake and Output 06/21/17 06/21/17 06/22/17 14:59 22:59 06:59 Intake Total 1985 ml 780 ml Output Total 1200 ml Balance 785 ml 780 ml Exam afebrile,abdomen soft and there is no flank tenderness Results/Medications Result Diagram: 06/22/17 0601 06/22/17 0601 Results 24 hrs Laboratory Tests Test 06/22/17 06:01 White Blood Count 7.6 # Red Blood Count 3.69 L Hemoglobin 12.0 Hematocrit 35.0 L Mean Corpuscular Volume 94.9 Mean Corpuscular Hemoglobin 32.5 Mean Corpuscular Hemoglobin Concent 34.3 Red Cell Distribution Width 13.0 Platelet Count 340 Mean Platelet Volume 8.9 Neutrophils % 45.1 Lymphocytes % 36.8 Monocytes % 13.6 H Eosinophils % 3.7 Basophils % 0.4 Nucleated Red Blood Cells % 0.0 Neutrophils # 3.4 Lymphocytes # 2.8 Monocytes # 1.0 H Eosinophils # 0.3 Basophils # 0.0 Nucleated Red Blood Cells # 0.0 Sodium Level 139 Potassium Level 3.8 Chloride Level 103 Carbon Dioxide Level 29 Anion Gap 11 Blood Urea Nitrogen 18 Creatinine 0.80 Glucose Level 87 Calcium Level 8.7 Assessment/Plan Chief Complaint/Hosp Course 89-year-old female had gross painless hematuria, urine cultures showing more than 100,000 gram-negative rods sensitive to all antibiotics tested. CT scan of the abdomen and pelvis without IV contrast did not show any parenchymal tumor. The patient is status post cystoscopy and bilateral retrograde pyelograms. The patient was found to have the bleeding coming from her right kidney. Cytology has been sent from the right kidney and that was negative.I did review the triple phase CT urogram with Dr Caldera. Except for a small 2mm stone in the right kidney it was negative. Patient may be discharged home on oral antibiotic and follow up as outpatient. I did discuss that with Dr Gaspar at the time I saw her around 1PM today Problems: GABBY ARMSTRONG MD Jun 22, 2017 22:40
== END 2017-06-22 15:22 | disposition home or self-care (01) | DRG 700 ==
LOC: E/R 15:38 → PP2 19:41 → INTOOBSV 19:41 → PP2 20:24 → OBSVTOIN 06-15 09:41
PROVIDERS: ADMIT Internal Medicine; ATTEND Internal Medicine
PROC: BT141ZZ Fluoroscopy of Kidneys, Ureters and Bladder using Low Osmolar Contrast (ICD-10-PCS; 2017-06-19)
PROC: 0T908ZX Drainage of Right Kidney, Via Natural or Artificial Opening Endoscopic, Diagnostic (ICD-10-PCS; principal; 2017-06-19 18:00)
DX: N28.89 Other specified disorders of kidney and ureter (principal); I10 Essential (primary) hypertension; N13.30 Unspecified hydronephrosis; N30.01 Acute cystitis with hematuria; E80.4 Gilbert syndrome; E87.6 Hypokalemia; K59.00 Constipation, unspecified; Q63.2 Ectopic kidney; B96.20 Unspecified Escherichia coli [E. coli] as the cause of diseases classified elsewhere
CPT/HCPCS: 36415; 74176; 74178; 74420; 80048; 80053; 81001; 83690; 83735; 84436; 84443; 84484; 85025; 85610; 87086; 88104; 93005; 96374; 99217; G0378; J0461; J0696; J1100; J2250; J2405; J3010; J7030; J7042; Q9967